=== PATIENT | female | born 1975 | race Caucasian/White ===

== ENCOUNTER 2020-11-22 09:28 | Outpatient (REF) | payer MEDICARE, SELFPAY ==
[2020-11-22 11:43] LABS: Hematocrit 54.5 % (37-47); Hemoglobin 18.5 g/dl (12.0-16.0); Mean Corpuscular HGB Conc 33.9 g/dl (31.0-35.0); Mean Corpuscular Hemoglobin 30.8 pg (27.0-33.0); Mean Corpuscular Volume 90.7 fL (80-98); Mean Platelet Volume 11.4 fL (9.4-12.3); Platelet Count 221 X10*3/uL (160-400); Red Blood Count 6.01 X10*6/uL (4.20-5.50); White Blood Count 9.1 X10*3/uL (4.8-10.8)
[2020-11-22 12:09] LABS: Alanine Aminotransferase 7 U/L (0-31); Albumin Level 5.2 g/dL (3.5-5.0); Alkaline Phosphatase 60 U/L (39-117); Anion Gap 18 (12-20); Aspartate Amino Transferase 14 U/L (5-31); Bilirubin Direct 0.6 mg/dL (0.0-0.5); Bilirubin Total 2.2 mg/dL (0.0-1.0); Blood Urea Nitrogen 29 mg/dL (9-16); Calcium 10.5 mg/dL (8.4-10.2); Carbon Dioxide 23 mmol/L (22-29); Chloride 103 mmol/L (96-108); Estimated Glomerular Filt Rate 52; Glucose Random 91 mg/dL (60-115); Sodium 140 mmol/L (135-145); Total Protein 7.9 g/dL (6.5-8.0)
[2020-11-22 12:22] LABS: HBc Num1 0.08 S/CO (0.00-0.79); HBsAGNum1 0.31 S/CO (0.00-0.99); HIV AB/AG Nonreactive (Nonreactive); HIV Num 1 0.05 S/CO (0.00-0.99); Hepatitis B Core Antibody Nonreactive (Nonreactive); Hepatitis B Surface Antigen Negative (Negative); ~HepC Num1 0.06 S/CO (0.00-0.79); ~Hepatitis C Antibody Nonreactive (Nonreactive)
[2020-11-22 12:26] LABS: Syphilis Screen Nonreactive (Nonreactive)
[2020-11-22 12:36] LABS: HBS Num1 1.15 mIU/mL (0-7.99); ~Hepatitis B Surface Antibody NONREACTIVE (Nonreactive)
[2020-11-24 07:41] LABS: Hepatitis A Antibody IgG Nonreactive (Nonreactive); ~Hepatitis A Antibody IgG 0.17 S/CO (0.00-0.99)
[2020-11-25 12:41] LABS: TS Negative Control Passed; TS Panel A 4; TS Panel B 6; TS Positive Control Passed; TSpotTB BORDERLINE (SeeBelow)
== END 2020-11-22 09:29 | disposition home or self-care (01) ==
LOC: HO.LAB 09:28
PROVIDERS: Visit Provider Internal Medicine
DX: F11.99 Opioid use, unspecified with unspecified opioid-induced disorder (principal); Z79.899 Other long term (current) drug therapy
CPT/HCPCS: 36415; 80048; 80076; 85027; 86481; 86704; 86706; 86708; 86780; 86803; 87340; 87389; 99202

== ENCOUNTER → 2020-11-29 11:20 | Outpatient (BNVA) | payer MEDICARE, SELFPAY | PROVIDERS: Visit Provider Internal Medicine | DX: F11.20 Opioid dependence, uncomplicated (principal) | CPT/HCPCS: 80305; 99211 ==

== ENCOUNTER → 2020-12-07 09:17 | Outpatient (BNVA) | payer MEDICARE, SELFPAY | PROVIDERS: Visit Provider Internal Medicine | DX: Z51.81 Encounter for therapeutic drug level monitoring (principal); Z79.899 Other long term (current) drug therapy | CPT/HCPCS: 80305; 99211 ==

== ENCOUNTER → 2020-12-14 10:17 | Outpatient (BNVA) | payer MEDICARE, SELFPAY | PROVIDERS: Visit Provider Internal Medicine | DX: Z51.81 Encounter for therapeutic drug level monitoring (principal); Z79.899 Other long term (current) drug therapy | CPT/HCPCS: 80305; 99211 ==

== ENCOUNTER → 2020-12-20 11:26 | Outpatient (BNVA) | payer MEDICARE, SELFPAY | DX: Z51.81 Encounter for therapeutic drug level monitoring (principal) | CPT/HCPCS: 80305; 99211 ==

== ENCOUNTER → 2021-01-03 10:56 | Outpatient (BNVA) | payer MEDICARE, SELFPAY | PROVIDERS: Visit Provider Internal Medicine | DX: F11.99 Opioid use, unspecified with unspecified opioid-induced disorder (principal) | CPT/HCPCS: 80305; 99211 ==

== ENCOUNTER → 2021-01-17 10:23 | Outpatient (BNVA) | payer MEDICARE, SELFPAY | PROVIDERS: Visit Provider Internal Medicine | DX: F11.20 Opioid dependence, uncomplicated (principal); Z51.81 Encounter for therapeutic drug level monitoring; Z79.899 Other long term (current) drug therapy | CPT/HCPCS: 96372; 99212; Q9992 ==

== ENCOUNTER → 2021-02-14 10:38 | Outpatient (BNVA) | payer MEDICARE, SELFPAY | PROVIDERS: Visit Provider Internal Medicine | DX: Z51.81 Encounter for therapeutic drug level monitoring (principal); F11.90 Opioid use, unspecified, uncomplicated | CPT/HCPCS: 80305; 81025; 96372; 99212; Q9992 ==

== ENCOUNTER → 2021-03-16 13:52 | Outpatient (BNVA) | payer MEDICARE, SELFPAY | PROVIDERS: Visit Provider Internal Medicine | DX: F11.20 Opioid dependence, uncomplicated (principal) | CPT/HCPCS: 80305; 96372; 99212 ==

== ENCOUNTER → 2021-04-18 10:43 | Outpatient (BNVA) | payer MEDICARE, SELFPAY | PROVIDERS: Visit Provider Internal Medicine | DX: F11.20 Opioid dependence, uncomplicated (principal); Z51.81 Encounter for therapeutic drug level monitoring; Z79.899 Other long term (current) drug therapy | CPT/HCPCS: 80305; 96372; 99212; Q9991 ==

== ENCOUNTER → 2021-05-18 11:24 | Outpatient (BNVA) | payer MEDICARE, SELFPAY | PROVIDERS: Visit Provider Internal Medicine | DX: F11.20 Opioid dependence, uncomplicated (principal); Z51.81 Encounter for therapeutic drug level monitoring; Z32.02 Encounter for pregnancy test, result negative; Z79.899 Other long term (current) drug therapy | CPT/HCPCS: 80305; 81025; 96372; 99212; Q9991 ==

== ENCOUNTER → 2021-06-14 10:26 | Outpatient (BNVA) | payer MEDICARE, SELFPAY | PROVIDERS: Visit Provider Internal Medicine | DX: F11.20 Opioid dependence, uncomplicated (principal); Z51.81 Encounter for therapeutic drug level monitoring; Z79.899 Other long term (current) drug therapy | CPT/HCPCS: 80305; 81025; 96372; 99212; Q9992 ==

== ENCOUNTER → 2021-07-13 10:37 | Outpatient (BNVA) | payer MEDICARE, SELFPAY | PROVIDERS: Visit Provider Internal Medicine | DX: F11.20 Opioid dependence, uncomplicated (principal); Z51.81 Encounter for therapeutic drug level monitoring; Z79.899 Other long term (current) drug therapy | CPT/HCPCS: 80305; 81025; 96372; 99212; Q9991 ==

== ENCOUNTER → 2021-08-10 10:46 | Outpatient (BNVA) | payer MEDICARE, SELFPAY | PROVIDERS: Visit Provider Internal Medicine | DX: F11.20 Opioid dependence, uncomplicated (principal) | CPT/HCPCS: 80305; 81025; 96372; 99212; Q9991 ==

== ENCOUNTER → 2021-09-07 10:31 | Outpatient (BNVA) | payer SELFPAY | PROVIDERS: Visit Provider Internal Medicine | DX: Z51.81 Encounter for therapeutic drug level monitoring (principal); F11.20 Opioid dependence, uncomplicated | CPT/HCPCS: 80305; 81025; 96372; 99212; Q9991 ==

== ENCOUNTER 2022-01-26 09:40 | Outpatient (REF) | payer MEDICAID, OTHER, SELFPAY ==
[2022-01-26 10:38] LABS: Alanine Aminotransferase 26 U/L (0-31); Albumin Level 4.4 g/dL (3.5-5.0); Alkaline Phosphatase 66 U/L (39-117); Anion Gap 12 (12-20); Aspartate Amino Transferase 22 U/L (5-31); Bilirubin Total 0.6 mg/dL (0.0-1.0); Blood Urea Nitrogen 14 mg/dL (9-16); Calcium 8.9 mg/dL (8.4-10.2); Carbon Dioxide 26 mmol/L (22-29); Chloride 106 mmol/L (96-108); Estimated Glomerular Filt Rate > 60; Glucose Random 73 mg/dL (60-115); Potassium 4.1 mmol/L (3.3-5.1); Sodium 140 mmol/L (135-145); Total Protein 6.7 g/dL (6.5-8.0)
== END 2022-01-26 09:41 | disposition home or self-care (01) ==
LOC: HO.LAB 09:40
PROVIDERS: Visit Provider Nurse Practitioner Psychiatric/Mental Health
DX: F11.20 Opioid dependence, uncomplicated (principal); Z79.899 Other long term (current) drug therapy
CPT/HCPCS: 36415; 80053; 80305; 99212

== ENCOUNTER → 2022-04-07 13:27 | Outpatient (BNVA) | payer MEDICAID, OTHER, SELFPAY | PROVIDERS: PCP Nurse Practitioner Family; Visit Provider Nurse Practitioner Psychiatric/Mental Health | DX: Z51.81 Encounter for therapeutic drug level monitoring (principal); F11.20 Opioid dependence, uncomplicated | CPT/HCPCS: 80305; 99212 ==

== ENCOUNTER → 2022-04-21 13:00 | Outpatient (BNVA) | payer MEDICAID, OTHER, SELFPAY | PROVIDERS: PCP Nurse Practitioner Family; Visit Provider Nurse Practitioner Psychiatric/Mental Health | DX: Z51.81 Encounter for therapeutic drug level monitoring (principal); F11.20 Opioid dependence, uncomplicated | CPT/HCPCS: 80305; 99212 ==

== ENCOUNTER → 2022-06-07 10:56 | Outpatient (BNVA) | payer MEDICAID, SELFPAY | PROVIDERS: PCP Nurse Practitioner Family; Visit Provider Nurse Practitioner Psychiatric/Mental Health | DX: F11.20 Opioid dependence, uncomplicated (principal) | CPT/HCPCS: 99212 ==

== ENCOUNTER → 2022-08-08 10:31 | Outpatient (BNVA) | payer MEDICAID, SELFPAY | PROVIDERS: PCP Nurse Practitioner Family; Visit Provider Nurse Practitioner Psychiatric/Mental Health | DX: F11.20 Opioid dependence, uncomplicated (principal) | CPT/HCPCS: 99212 ==

== ENCOUNTER → 2022-10-10 15:42 | Outpatient (BNVA) | payer MEDICAID, SELFPAY | PROVIDERS: PCP Nurse Practitioner Family; Visit Provider Nurse Practitioner Psychiatric/Mental Health | DX: F11.20 Opioid dependence, uncomplicated (principal); Z79.899 Other long term (current) drug therapy; Z51.81 Encounter for therapeutic drug level monitoring | CPT/HCPCS: 99212 ==

== ENCOUNTER 2023-01-26 13:49 | Outpatient (AMB) | payer MEDICAID, SELFPAY ==
--- NOTE | 2023-01-26 13:55 | A.OFFVIS_ITS ---
Intake Vital Signs 01/26/23 14:06 BP 124/82 Blood Pressure Location Lt radial Position Sitting Pulse 84 Pulse Source Pulse Oximeter Pulse Oximetry (%) 99 Oxygen Delivery Method Room Air Intake Visit Reasons: MAT Visit Intake Note: the patient presents for a mat visit Code Enforcement Supervisor Required: No Allergies Iodinated Contrast Media [CONTRAST, IV] Allergy (Severe, Verified 01/26/23 13:56) ANAPHALAXIS Penicillins [PENICILLINS] Allergy (Intermediate, Verified 01/26/23 13:56) HIVES mushroom Allergy (Mild, Verified 01/26/23 13:56) Rash divalproex sodium [From DEPAKOTE] Allergy (Unknown, Verified 01/26/23 13:56) SWELLING Do you need a note to return to daycare/school/sports/work: No HPI MAT Visit HPI Details Patient presents for treatment follow up taking suboxone every other day 1/2 -one film Was taking medications via cerebral --stopped 2 months ago due to cost Celexa 40mg daily Buspar 7.5 mg BID Lamictal 100mg BID Concerned she will not be able to stop suboxone due to withdrawal sx that present after a day or two of not having it--mainly the restless legs Discussed a p.r.n. medication to address this and see if it is effective. Patient agreeable. [facility] Medical History (Updated 01/26/23 @ 17:55 by Britt Rodríguez CNP) Opioid use disorder Surgical History History of appendectomy History of bunionectomy History of cholecystectomy Previous back surgery Review of Systems Const Reports as per HPI Physical Exam Vital Signs: Last Vital Signs Pulse 84 01/26/23 14:06 BP 124/82 01/26/23 14:06 Pulse Ox 99 01/26/23 14:06 Oxygen Delivery Method Room Air 01/26/23 14:06 Const General: cooperative, healthy appearing and no acute distress Nutritional Appearance: average body habitus Orientation/consciousness: patient oriented x3 Limitations: no limitations Neuro General: patient oriented x3 Psych Appearance: grossly normal Mental Status: mental status grossly normal Speech and movement: Normal speech and movement present Affect: Anxious affect present Attitude: cooperative Thought process: Normal thought process present Thought content: Normal thought content present Insight: Good insight present (Psych) Judgement: Good judgement present (Psych) Results AMB 14 Panel Urine Drug Screen Urine Marijuana (THC) Negative Last Edit by Faye Gong CMA on 01/26/23 15:11 Urine Cocaine Negative Last Edit by Faye Gong CMA on 01/26/23 15:11 Urine Morphine Negative Last Edit by Faye Gong CMA on 01/26/23 15:11 Urine Methamphetamine Negative Last Edit by Faye Gong CMA on 01/26/23 15:11 Urine Amphetamine Negative Last Edit by Faye Gong CMA on 01/26/23 15:1 1 Urine Benzodiazepine Negative Last Edit by Faye Gong CMA on 01/26/23 15:11 Urine Barbiturates Negative Last Edit by Faye Gong CMA on 01/26/23 15: 11 Urine Methadone Negative Last Edit by Faye Gong CMA on 01/26/23 15:11 Urine Buprenorphine Positive Last Edit by Faye Gong CMA on 01/26/23 15 :11 Urine Tricyclic Antidepressant Positive Last Edit by Faye Gong CMA on 01/26/23 15:11 Urine MDMA Negative Last Edit by Faye Gong CMA on 01/26/23 15:11 Urine Oxycodone Negative Last Edit by Faye Gong CMA on 01/26/23 15:11 Urine Phencyclidine Negative Last Edit by Faye Gong CMA on 01/26/23 15 :11 Urine Propoxyphene Negative Last Edit by Faye Gong CMA on 01/26/23 15: 11 Results Reviewed Results Reviewed: Laboratory Last Values POC Urine Buprenorphine Positive 01/26/23 13:57 POC Urine Morphine Negative 01/26/23 13:57 POC Urine Oxycodone Negative 01/26/23 13:57 POC Urine Methadone Negative 01/26/23 13:57 POC Urine Propoxyphene Negative 01/26/23 13:57 POC Urine Barbiturates Negative 01/26/23 13:57 POC U Tricyclic Antidpr Positive 01/26/23 13:57 POC Urine PCP Negative 01/26/23 13:57 POC Ur Amphetamines Negative 01/26/23 13:57 POC Ur Methamphetamine Negative 01/26/23 13:57 POC Urine MDMA Negative 01/26/23 13:57 POC Ur Benzodiazepine Negative 01/26/23 13:57 POC Urine Cocaine Negative 01/26/23 13:57 POC Ur Marijuana (THC) Negative 01/26/23 13:57 Assessment & Plan Assessment & Plan (1) Opioid use disorder: Code(s): F11.99 - Opioid use, unspecified with unspecified opioid-induced disorder Plan: * Patient to continue taking Suboxone S she currently is * Celexa and BuSpar refilled * The tizanidine p.r.n. ordered for restless legs * Follow-up 3 weeks via telephone Orders: Orders AMB 14 Panel Urine Drug Screen Today Z51.81 - Encounter for therapeutic drug level monitoring Medications: New citalopram (Celexa) take one tab daily for one week then increase to 2 tabs daily 10 mg PO DAILY 45 tabs 0RF buspirone 10 mg PO BID 60 tabs 0RF tizanidine 4 mg PO BEDTIME PRN 14 tabs 0RF muscle spasticity Refilled buprenorphine-naloxone 2-0.5 mg (Suboxone) 1 film sublingual DAILY 28 ea 0RF 28 days Coding Level of Care Code Est Pt Level 4 (15660) Diagnoses Opioid use disorder F11.99
[2023-01-26 14:06] VITALS: BP 124/82; PULSE 84; O2SAT 99
== END 2023-01-26 14:39 | disposition home or self-care (01) ==
LOC: HO.HCC 13:49
PROVIDERS: PCP Nurse Practitioner Family; Visit Provider Nurse Practitioner Psychiatric/Mental Health
DX: F11.99 Opioid use, unspecified with unspecified opioid-induced disorder (principal); Z51.81 Encounter for therapeutic drug level monitoring
CPT/HCPCS: 99214

== ENCOUNTER → 2023-01-26 13:49 | Outpatient (BNVA) | payer MEDICAID, SELFPAY | PROVIDERS: PCP Nurse Practitioner Family; Visit Provider Nurse Practitioner Psychiatric/Mental Health | DX: F11.20 Opioid dependence, uncomplicated (principal) | CPT/HCPCS: 80305; 99212; 99214 ==

== ENCOUNTER 2023-02-23 08:58 | Outpatient (AMB) | payer MEDICAID, SELFPAY ==
--- NOTE | 2023-02-23 09:02 | A.OFFVIS_ITS ---
Intake Intake Visit Reasons: MAT Visit Allergies Iodinated Contrast Media [CONTRAST, IV] Allergy (Severe, Verified 01/26/23 13:56) ANAPHALAXIS Penicillins [PENICILLINS] Allergy (Intermediate, Verified 01/26/23 13:56) HIVES mushroom Allergy (Mild, Verified 01/26/23 13:56) Rash divalproex sodium [From DEPAKOTE] Allergy (Unknown, Verified 01/26/23 13:56) SWELLING HPI MAT Visit HPI Details Patient presents for visit via telehealth Has started to taper dose--but has been taking PRN instead of daily. Has been taking 1/2 film PRN and having significant withdrawal sx in the evening, mainly restless legs. Tizanidine has been somewhat helpful. Discussed taking 1/2 film daily for a few weeks, then decreasing to 1/4 film daily for several weeks. Tolerating celexa and buspirone--would like to increase dose to previous therapeutic dose of 40mg Celexa [facility] Medical History (Updated 01/26/23 @ 17:55 by Britt Rodríguez CNP) Opioid use disorder Surgical History History of cholecystectomy History of appendectomy History of bunionectomy Previous back surgery Review of Systems Const Reports as per HPI and Reports difficulty sleeping Assessment & Plan Assessment & Plan (1) Opioid use disorder: Code(s): F11.99 - Opioid use, unspecified with unspecified opioid-induced disorder Plan: * continue suboxone at 1mg QD * refilled tizanidine * increased celexa dose to 40mg (previous therapeutic dose) * refilled buspirone * follow up 03/23 telehealth Medications: New citalopram (Celexa) 40 mg PO DAILY 30 tabs 3RF buspirone 10 mg PO TID 90 tabs 3RF Refilled tizanidine 4 mg PO BEDTIME PRN 14 tabs 0RF muscle spasticity Discontinued citalopram (Celexa) take one tab daily for one week then increase to 2 tabs daily Discontinued Reason: Doctor's Order 10 mg PO DAILY 45 tabs 0RF buspirone Discontinued Reason: Doctor's Order 10 mg PO BID 60 tabs 0RF Telehealth Telehealth Location of provider rendering services: practice address Location of patient: address on file Patient Identification confirmed using: Name, : Yes Telehealth method: voice only Patient verbally consented to treatment: Yes Patient verbally consented to billing insurance company: Yes Coding Level of Care Code Tele Est Pt Level 4 (82629) Diagnoses Opioid use disorder F11.99 Time Spent (min) 25 Comment 20mins with patient, remainder on chart review and documentation
== END 2023-02-23 10:59 | disposition home or self-care (01) ==
LOC: HO.HCC 08:58
PROVIDERS: PCP Nurse Practitioner Family; Visit Provider Nurse Practitioner Psychiatric/Mental Health
DX: F11.99 Opioid use, unspecified with unspecified opioid-induced disorder (principal)
CPT/HCPCS: 99214

== ENCOUNTER → 2023-02-23 08:58 | Outpatient (BNVA) | payer MEDICAID, SELFPAY | PROVIDERS: PCP Nurse Practitioner Family; Visit Provider Nurse Practitioner Psychiatric/Mental Health | DX: Z51.81 Encounter for therapeutic drug level monitoring (principal) ==

== ENCOUNTER 2023-03-23 09:00 | Outpatient (AMB) | payer MEDICAID, SELFPAY ==
--- NOTE | 2023-03-23 09:02 | MHC.AM.SUB ---
Intake Intake Visit Reasons: mat visit Allergies Iodinated Contrast Media [CONTRAST, IV] Allergy (Severe, Verified 01/26/23 13:56) ANAPHALAXIS Penicillins [PENICILLINS] Allergy (Intermediate, Verified 01/26/23 13:56) HIVES mushroom Allergy (Mild, Verified 01/26/23 13:56) Rash divalproex sodium [From DEPAKOTE] Allergy (Unknown, Verified 01/26/23 13:56) SWELLING HPI mat visit HPI Details Patient presents for follow up via telehealth Has been taking 1/2 of 2mg film daily. Reports that since she has started taking Suboxone daily her restless legs have much improved She has been at this dose for the last month 1/4 film daily [facility] Medical History (Updated 01/26/23 @ 17:55 by Britt Rodríguez CNP) Opioid use disorder Surgical History History of cholecystectomy History of appendectomy History of bunionectomy Previous back surgery Review of Systems Const Reports as per HPI and Reports no additional complaints Assessment & Plan Assessment & Plan (1) Opioid use disorder: Code(s): F11.99 - Opioid use, unspecified with unspecified opioid-induced disorder Plan: decrease dose by 1/4 film follow up 6 weeks refilled medications Medications: Refilled buprenorphine-naloxone 2-0.5 mg (Suboxone) 1 film sublingual DAILY 28 days 28 ea 0RF tizanidine 4 mg PO BEDTIME PRN 30 tabs 0RF muscle spasticity Telehealth Telehealth Location of provider rendering services: practice address Location of patient: address on file Patient Identification confirmed using: Name, : Yes Telehealth method: voice only Patient verbally consented to treatment: Yes Patient verbally consented to billing insurance company: Yes Coding Level of Care Code Tele Est Pt Level 3 (10458) Diagnoses Opioid use disorder F11.99 Time Spent (min) 25 Comment 15 mins with patient reminder on chart review and documentation
== END 2023-03-23 09:22 | disposition home or self-care (01) ==
PROVIDERS: PCP Nurse Practitioner Family; Visit Provider Nurse Practitioner Psychiatric/Mental Health
DX: F11.99 Opioid use, unspecified with unspecified opioid-induced disorder (principal)
CPT/HCPCS: 99213

== ENCOUNTER → 2023-03-23 09:00 | Outpatient (BNVA) | payer MEDICAID, SELFPAY | PROVIDERS: PCP Nurse Practitioner Family; Visit Provider Nurse Practitioner Psychiatric/Mental Health ==

== ENCOUNTER 2023-05-04 08:42 | Outpatient (AMB) | payer MEDICAID, SELFPAY ==
--- NOTE | 2023-05-04 09:03 | A.OFFVIS_ITS ---
Intake Intake Visit Reasons: mat visit Allergies Iodinated Contrast Media [CONTRAST, IV] Allergy (Severe, Verified 01/26/23 13:56) ANAPHALAXIS Penicillins [PENICILLINS] Allergy (Intermediate, Verified 01/26/23 13:56) HIVES mushroom Allergy (Mild, Verified 01/26/23 13:56) Rash divalproex sodium [From DEPAKOTE] Allergy (Unknown, Verified 01/26/23 13:56) SWELLING HPI mat visit HPI Details Patient presents for follow up via telehealth Currently prescribed Suboxone 2mg QD-taking 1mg QD Doing well overall. No questions or concerns at this time Working [employer] Medical History (Updated 01/26/23 @ 17:55 by Britt Rodríguez CNP) Opioid use disorder Surgical History History of cholecystectomy History of appendectomy History of bunionectomy Previous back surgery Review of Systems Const Reports as per HPI and Reports no additional complaints Assessment & Plan Assessment & Plan (1) Opioid use disorder: Code(s): F11.99 - Opioid use, unspecified with unspecified opioid-induced disorder Plan: * decrease dose by 1/4 film if tolerated * follow up 6 weeks * refilled medications Medications: Refilled buprenorphine-naloxone 2-0.5 mg (Suboxone) 1 film sublingual DAILY 28 ea 0RF 28 days tizanidine 4 mg PO BEDTIME PRN 30 tabs 0RF muscle spasticity Telehealth Telehealth Location of provider rendering services: practice address Location of patient: other Patient Identification confirmed using: Name, : Yes Telehealth method: voice only Patient verbally consented to treatment: Yes Patient verbally consented to billing insurance company: Yes Coding Level of Care Code Tele Est Pt Level 3 (91851) Diagnoses Opioid use disorder F11.99 Time Spent (min) 25
== END 2023-05-04 09:37 | disposition home or self-care (01) ==
PROVIDERS: PCP Nurse Practitioner Family; Visit Provider Nurse Practitioner Psychiatric/Mental Health
DX: F11.99 Opioid use, unspecified with unspecified opioid-induced disorder (principal)
CPT/HCPCS: 99213

== ENCOUNTER → 2023-05-04 08:42 | Outpatient (BNVA) | payer MEDICAID, SELFPAY | PROVIDERS: PCP Nurse Practitioner Family; Visit Provider Nurse Practitioner Psychiatric/Mental Health ==

== ENCOUNTER 2023-06-18 09:04 | Outpatient (AMB) | payer MEDICAID, SELFPAY ==
--- NOTE | 2023-06-18 09:05 | A.OFFVISCC_ITS ---
Intake Intake Visit Reasons: MAT Visit Allergies Iodinated Contrast Media [CONTRAST, IV] Allergy (Severe, Verified 01/26/23 13:56) ANAPHALAXIS Penicillins [PENICILLINS] Allergy (Intermediate, Verified 01/26/23 13:56) HIVES mushroom Allergy (Mild, Verified 01/26/23 13:56) Rash divalproex sodium [From DEPAKOTE] Allergy (Unknown, Verified 01/26/23 13:56) SWELLING HPI MAT Visit HPI Details Patient presents for follow up via telehealth Reporting that she has been feeling really down , poor sleep--frequent waking, decreased interest in doing things, poor appetite. Sx present for about a month. Denies feeling like this in the past. Wondering if Lamotrigine would be helpful as she was previously on 100mg. No issues with Suboxone, continues to take it every evening. [facility] Medical History (Updated 06/21/23 @ 09:38 by Britt Rodríguez CNP) Opioid use disorder Surgical History History of cholecystectomy History of appendectomy History of bunionectomy Previous back surgery Review of Systems Const Reports as per HPI Assessment & Plan Assessment & Plan (1) Opioid use disorder: Code(s): F11.99 - Opioid use, unspecified with unspecified opioid-induced disorder Plan: * continue suboxone at current dose (2) MDD (major depressive disorder), recurrent episode, moderate: Code(s): F33.1 - Major depressive disorder, recurrent, moderate Plan: * continue celexa * started lamictal 25mg QD--while patient is familiar with medication becasue she was previously prescribed it, reinforced dosing and possible side effects to watch for. Medications: New lamotrigine 25 mg PO DAILY 14 days 14 tabs 0RF Telehealth Telehealth Location of provider rendering services: practice address Location of patient: address on file Patient Identification confirmed using: Name, : Yes Telehealth method: voice only Patient verbally consented to treatment: Yes Patient verbally consented to billing insurance company: Yes Coding Level of Care Code Tele Est Pt Level 4 (10879) Diagnoses Opioid use disorder F11.99 MDD (major depressive disorder), recurrent episode, moderate F33.1 Time Spent (min) 35 Comment 25 with patient remainder on chart review and documentation
== END 2023-06-18 09:19 | disposition home or self-care (01) ==
PROVIDERS: PCP Nurse Practitioner Family; Visit Provider Nurse Practitioner Psychiatric/Mental Health
DX: F11.99 Opioid use, unspecified with unspecified opioid-induced disorder (principal); F33.1 Major depressive disorder, recurrent, moderate
CPT/HCPCS: 99214

== ENCOUNTER → 2023-06-18 09:04 | Outpatient (BNVA) | payer MEDICAID, SELFPAY | PROVIDERS: PCP Nurse Practitioner Family; Visit Provider Nurse Practitioner Psychiatric/Mental Health ==

== ENCOUNTER 2023-07-20 13:22 | Outpatient (AMB) | payer OTHER, SELFPAY ==
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
[2023-07-20 13:41] VITALS: BP 138/84; PULSE 84; O2SAT 97; BMI 27.5
== END 2023-07-20 14:17 | disposition home or self-care (01) ==
PROVIDERS: PCP Nurse Practitioner Family; Visit Provider Nurse Practitioner Psychiatric/Mental Health
DX: F11.99 Opioid use, unspecified with unspecified opioid-induced disorder (principal); F33.1 Major depressive disorder, recurrent, moderate
CPT/HCPCS: 99214

== ENCOUNTER → 2023-07-20 13:22 | Outpatient (BNVA) | payer OTHER, SELFPAY | PROVIDERS: PCP Nurse Practitioner Family; Visit Provider Nurse Practitioner Psychiatric/Mental Health | DX: F11.20 Opioid dependence, uncomplicated (principal); F33.1 Major depressive disorder, recurrent, moderate; Z79.899 Other long term (current) drug therapy | CPT/HCPCS: 80305 ==

== ENCOUNTER 2023-08-14 09:02 | Outpatient (AMB) | payer OTHER, SELFPAY ==
--- NOTE | 2023-08-14 09:04 | MHC.AM.SUB ---
Intake Intake Visit Reasons: MAT Visit Allergies Iodinated Contrast Media [CONTRAST, IV] Allergy (Severe, Verified 01/26/23 13:56) ANAPHALAXIS Penicillins [PENICILLINS] Allergy (Intermediate, Verified 01/26/23 13:56) HIVES mushroom Allergy (Mild, Verified 01/26/23 13:56) Rash divalproex sodium [From DEPAKOTE] Allergy (Unknown, Verified 01/26/23 13:56) SWELLING HPI MAT Visit HPI Details Patient presents for follow up via telehealth Tolerating increase in Lamictal Reporting a positive month Doing well with Suboxone dose Denies any side effects [facility] Medical History (Updated 08/14/23 @ 09:11 by Britt Rodríguez CNP) Opioid use disorder Surgical History History of cholecystectomy History of appendectomy History of bunionectomy Previous back surgery Review of Systems Const Reports as per HPI and Reports no additional complaints Assessment & Plan Assessment & Plan (1) Opioid use disorder, moderate, in sustained remission: Code(s): F11.21 - Opioid dependence, in remission Plan: continue with current dose (2) MDD (major depressive disorder), recurrent episode, moderate: Code(s): F33.1 - Major depressive disorder, recurrent, moderate Plan: continue lamictal at current dose follow up 8 weeks Medications: Refilled lamotrigine 50 mg (2 x 25 mg) PO DAILY 60 tabs 1RF 30 days tizanidine 4 mg PO BEDTIME PRN 30 tabs 1RF muscle spasticity buprenorphine-naloxone 2-0.5 mg (Suboxone) 1 film sublingual DAILY 28 ea 1RF 28 days Telehealth Telehealth Location of provider rendering services: practice address Location of patient: address on file Patient Identification confirmed using: Name, : Yes Telehealth method: voice only Patient verbally consented to treatment: Yes Patient verbally consented to billing insurance company: Yes Coding Level of Care Code Tele Est Pt Level 4 (53286) Diagnoses Opioid use disorder, moderate, in sustained remission F11.21 MDD (major depressive disorder), recurrent episode, moderate F33.1
== END 2023-08-14 09:50 | disposition home or self-care (01) ==
PROVIDERS: PCP Nurse Practitioner Family; Visit Provider Nurse Practitioner Psychiatric/Mental Health
DX: F11.21 Opioid dependence, in remission (principal); F33.1 Major depressive disorder, recurrent, moderate
CPT/HCPCS: 99214

== ENCOUNTER → 2023-08-14 09:02 | Outpatient (BNVA) | payer OTHER, SELFPAY | PROVIDERS: PCP Nurse Practitioner Family; Visit Provider Nurse Practitioner Psychiatric/Mental Health | DX: Z51.81 Encounter for therapeutic drug level monitoring (principal) ==

== ENCOUNTER 2024-01-23 14:16 | Outpatient (AMB) | payer OTHER, SELFPAY ==
--- NOTE | 2024-01-23 14:40 | A.OFFVISCC_ITS ---
Intake Visit Reasons: MAT office Allergies Iodinated Contrast Media [CONTRAST, IV] Allergy (Severe, Verified 01/26/23 13:56) ANAPHALAXIS Penicillins [PENICILLINS] Allergy (Intermediate, Verified 01/26/23 13:56) HIVES mushroom Allergy (Mild, Verified 01/26/23 13:56) Rash divalproex sodium [From DEPAKOTE] Allergy (Unknown, Verified 01/26/23 13:56) SWELLING HPI HPI MAT office: Details: Patient presents for follow up Currently prescribed Suboxone 2mg daily Feels like she has been taking suboxone more consistently recently discussed strategies for continuing to reduce dose new dentures mood stable with current regimen PFSH Medical History (Updated 08/14/23 @ 09:11 by Britt Rodríguez CNP) Opioid use disorder Surgical History History of cholecystectomy History of appendectomy History of bunionectomy Previous back surgery Review of Systems Const Reports as per HPI Physical Exam Const General: cooperative, healthy appearing and no acute distress Nutritional Appearance: average body habitus Orientation/consciousness: patient oriented x3 Limitations: no limitations Neuro General: patient oriented x3 Psych Appearance: grossly normal Mental Status: mental status grossly normal Speech and movement: Normal speech and movement present Affect: Anxious affect present Attitude: cooperative Thought process: Normal thought process present Thought content: Normal thought content present Insight: Good insight present (Psych) Judgement: Good judgement present (Psych) Assessment & Plan Assessment & Plan (1) Opioid use disorder, moderate, in sustained remission: Code(s): F11.21 - Opioid dependence, in remission Category: Medical Plan: * continue with current dose (2) MDD (major depressive disorder), recurrent episode, moderate: Code(s): F33.1 - Major depressive disorder, recurrent, moderate Category: Medical Plan: * continue lamictal at current dose * follow up 8 weeks telehealth Medications: Refilled tizanidine 4 mg PO BEDTIME PRN 30 tabs 3RF muscle spasticity lamotrigine 50 mg (2 x 25 mg) PO DAILY 60 tabs 3RF 30 days citalopram (Celexa) 40 mg PO DAILY 90 tabs 3RF
== END 2024-01-23 15:52 | disposition home or self-care (01) ==
PROVIDERS: PCP Nurse Practitioner Family; Visit Provider Nurse Practitioner Psychiatric/Mental Health
DX: F11.21 Opioid dependence, in remission (principal); F33.1 Major depressive disorder, recurrent, moderate
CPT/HCPCS: 99214

== ENCOUNTER → 2024-01-23 14:16 | Outpatient (BNVA) | payer OTHER, SELFPAY | PROVIDERS: PCP Nurse Practitioner Family; Visit Provider Nurse Practitioner Psychiatric/Mental Health ==

== ENCOUNTER 2024-02-21 08:44 | Outpatient (AMB) | payer OTHER, SELFPAY ==
--- NOTE | 2024-02-21 08:43 | A.OFFVISCC_ITS ---
Intake Visit Reasons: MAT Tele Allergies Iodinated Contrast Media [CONTRAST, IV] Allergy (Severe, Verified 01/26/23 13:56) ANAPHALAXIS Penicillins [PENICILLINS] Allergy (Intermediate, Verified 01/26/23 13:56) HIVES mushroom Allergy (Mild, Verified 01/26/23 13:56) Rash divalproex sodium [From DEPAKOTE] Allergy (Unknown, Verified 01/26/23 13:56) SWELLING Medication List - Last Reconciled 02/21/24 by Britt Rodríguez CNP buprenorphine-naloxone 2-0.5 mg (Suboxone) 1 film sublingual DAILY 28 days buspirone 15 mg PO TID citalopram (Celexa) 40 mg PO DAILY lamotrigine 50 mg (2 x 25 mg) PO DAILY 30 days naloxone 4 mg/actuation (Narcan) 4 mg intranasal Q2M PRN tizanidine 4 mg PO BEDTIME PRN HPI HPI MAT Tele: Details: Patient presents for follow up via telehealth Reporting that she has been taking one film consistently feels it may be related to anxiety discussed brixadi low dose--open to trialing [facility] Medical History (Updated 08/14/23 @ 09:11 by Britt Rodríguez CNP) Opioid use disorder Surgical History History of cholecystectomy History of appendectomy History of bunionectomy Previous back surgery Review of Systems Const Reports as per HPI Telehealth Telehealth Telehealth Platform: Telephone Location of provider rendering services: practice address Location of patient: address on file Patient Identification confirmed using: Name, : Yes Telehealth method: voice only Patient verbally consented to treatment: Yes Patient verbally consented to billing insurance company: Yes Minutes spent on Phone/Video with Pt.: 20 Assessment & Plan Assessment & Plan (1) Opioid use disorder, moderate, in sustained remission: Code(s): F11.21 - Opioid dependence, in remission Category: Medical Plan: * continue suboxone at current dose * will order Brixadi (2) MDD (major depressive disorder), recurrent episode, moderate: Code(s): F33.1 - Major depressive disorder, recurrent, moderate Category: Medical Plan: * increase buspar to 15mg TID * follow up 6 weeks Medications: New buspirone 15 mg PO TID 90 tabs 0RF Discontinued buspirone Discontinued Reason: Doctor's Order 10 mg PO TID 90 tabs 1RF
== END 2024-02-21 09:22 | disposition home or self-care (01) ==
PROVIDERS: PCP Nurse Practitioner Family; Visit Provider Nurse Practitioner Psychiatric/Mental Health
DX: F11.21 Opioid dependence, in remission (principal); F33.1 Major depressive disorder, recurrent, moderate
CPT/HCPCS: 99214

== ENCOUNTER → 2024-02-21 08:44 | Outpatient (BNVA) | payer OTHER, SELFPAY | PROVIDERS: PCP Nurse Practitioner Family; Visit Provider Nurse Practitioner Psychiatric/Mental Health ==

== ENCOUNTER 2024-07-18 10:33 | Outpatient (AMB) | payer OTHER, SELFPAY ==
--- NOTE | 2024-07-18 10:49 | A.OFFVISCC_ITS ---
Intake Visit Reasons: MAT Office Allergies Iodinated Contrast Media [CONTRAST, IV] Allergy (Severe, Verified 01/26/23 13:56) ANAPHALAXIS Penicillins [PENICILLINS] Allergy (Intermediate, Verified 01/26/23 13:56) HIVES mushroom Allergy (Mild, Verified 01/26/23 13:56) Rash divalproex sodium [From DEPAKOTE] Allergy (Unknown, Verified 01/26/23 13:56) SWELLING HPI HPI MAT Office: Details: Patient presents for follow up Currently prescribed Suboxone 2mg QD Doing well with Suboxone Reporting increase in anxiety Had to leave work due to what felt like a panic attack Discussed seeing PCP to r/o anything underlying thyroid, anemia, etc patient agreeable Review of Systems Const Reports as per HPI and Reports no additional complaints Physical Exam Const General: cooperative, healthy appearing and no acute distress Nutritional Appearance: average body habitus Orientation/consciousness: patient oriented x3 Limitations: no limitations Neuro General: patient oriented x3 Psych Appearance: grossly normal Mental Status: mental status grossly normal Speech and movement: Normal speech and movement present Affect: Anxious affect present Attitude: cooperative Thought process: Normal thought process present Thought content: Normal thought content present Insight: Good insight present (Psych) Judgement: Good judgement present (Psych) [facility] Medical History (Updated 08/14/23 @ 09:11 by Britt Rodríguez CNP) Opioid use disorder Surgical History History of cholecystectomy History of appendectomy History of bunionectomy Previous back surgery Assessment & Plan Assessment & Plan (1) Opioid use disorder, moderate, in sustained remission: Code(s): F11.21 - Opioid dependence, in remission Category: Medical Plan: * continue suboxone at current dose (2) MDD (major depressive disorder), recurrent episode, moderate: Code(s): F33.1 - Major depressive disorder, recurrent, moderate Category: Medical Plan: * continue current medications * follow up 6 weeks
== END 2024-07-18 11:05 | disposition home or self-care (01) ==
LOC: HO.HCC 10:33
PROVIDERS: PCP Nurse Practitioner Family; Visit Provider Nurse Practitioner Psychiatric/Mental Health
DX: F11.21 Opioid dependence, in remission (principal); F33.1 Major depressive disorder, recurrent, moderate
CPT/HCPCS: 99213

== ENCOUNTER → 2024-07-18 10:33 | Outpatient (BNVA) | payer OTHER, SELFPAY | PROVIDERS: PCP Nurse Practitioner Family; Visit Provider Nurse Practitioner Psychiatric/Mental Health ==

== ENCOUNTER → 2024-09-10 16:08 | Outpatient (BNVA) | payer OTHER, SELFPAY | PROVIDERS: PCP Nurse Practitioner Family; Visit Provider Internal Medicine ==

== ENCOUNTER 2024-12-22 11:12 | Outpatient (AMB) | payer OTHER, SELFPAY ==
[2024-12-22 11:18] VITALS: PULSE 88; O2SAT 99; BMI 27.5
--- NOTE | 2024-12-22 11:18 | MHC.OFFVIS ---
Vital Signs 12/22/24 11:18 Height 5 ft 5 in Weight 165 lb BMI 27.5 Pulse 88 Pulse Source Pulse Oximeter Pulse Oximetry (%) 99 Oxygen Delivery Method Room Air Intake Visit Reasons: mat Allergies Iodinated Contrast Media (CONTRAST, IV) Allergy (Severe, Verified 12/22/24 11:19) ANAPHALAXIS Penicillins (PENICILLINS) Allergy (Intermediate, Verified 12/22/24 11:19) HIVES mushroom Allergy (Mild, Verified 12/22/24 11:19) Rash divalproex sodium (From DEPAKOTE) Allergy (Unknown, Verified 12/22/24 11:19) SWELLING HPI Comments Details: A 49-year-old female presents with a history of OUD and continues to feel stable on buprenorphine/naloxone 2-0.5 mg daily, which the patient has been compliant with for four years. The patient mentions a milestone of stability but has considered transitioning to injectable buprenorphine which insurance complications had made inaccessible. There is also a noted prescription for buspirone, taken three times and lamotrigine daily for which patient is asking for refills until able to follow up with PCP. The patient, historically under the care of Britt, established a need for continuity as her previous clinician shifted focus to inpatient care. The patient reports nicotine use via vaping amid abstinence from traditional cigarette smoking or other opioids. Alcohol use is also described, characterized as twisted tea consumption twice a week, with the patient expressly denying substantial alcohol use. [facility] Medical History Opioid use disorder Surgical History History of cholecystectomy History of appendectomy History of bunionectomy Previous back surgery Review of Systems Const All systems reviewed & are unremarkable except as noted in HPI and below Physical Exam Vital Signs: Last Vital Signs Pulse 88 12/22/24 11:18 Pulse Ox 99 12/22/24 11:18 Oxygen Delivery Method Room Air 12/22/24 11:18 BMI result Body Mass Index 27.5 Const General: cooperative Psych Appearance: well kempt Mental Status: mental status grossly normal Speech and movement: Normal speech and movement present Affect: Animated affect present Attitude: cooperative Thought process: Normal thought process present Thought content: Normal thought content present Insight: Good insight present (Psych) Judgement: Good judgement present (Psych) Assessment & Plan Assessment & Plan (1) Opioid use disorder, moderate, in sustained remission: Code(s): F11.21 - Opioid dependence, in remission Category: Medical (2) MDD (major depressive disorder), recurrent episode, moderate: Code(s): F33.1 - Major depressive disorder, recurrent, moderate Category: Medical (3) Generalized anxiety disorder: Code(s): F41.1 - Generalized anxiety disorder Category: Medical Plan The plan of care is continue with buprenorphine-naloxone 2-0.5 mg, daily. Refills on buspirone 15 mg, TID and lamotrigine 25 mg, two tablets daily pending following up with PCP or establishing mental health service. Medications: Refilled lamotrigine 50 mg (2 x 25 mg) PO DAILY 60 tabs 1RF 30 days buprenorphine-naloxone 2-0.5 mg (Suboxone) 1 film sublingual DAILY 30 ea 1RF buspirone 15 mg PO TID 90 tabs 1RF Patient Instructions: - Continue buprenorphine-naloxone 2-0.5 mg daily. - Continue buspirone 15 mg three times per day and lamotrigine 25 mg, two tablet daily ordreded with one refill pending follow up with PCP or establishing mental health services. - Follow up in two months or sooner, if needed. - Call with questions or concerns to [facility]. - Patient verbalized and agreed with plan of care. Scribe Plan - Not visible on output: Patient was informed and verbally consented to the use of an ambient scribe for clinical note documentation during this visit. Coding Level of Care Code Est Pt Level 4 (24509) Diagnoses Opioid use disorder, moderate, in sustained remission F11.21 MDD (major depressive disorder), recurrent episode, moderate F33.1 Generalized anxiety disorder F41.1
--- OUTSIDE RECORDS SUMMARY | 2024-12-22 12:21 | XMS_ITS | Data Portability ---
Author Organization [facility], , [facility] OFFICE Address [address] [place] [address] Care Team Providers Care Cras Name Role Phone ANABELLA TSE Psychiatrist HALEY SKELTON [facility] [phone] LILIYA HENRY Primary Care Provider [facility] Sliver Cutter [phone] Assessment Encounter Date Assessment Date Assessment LastModified by Organization Details LastModified Time 02/22/2023 02/22/2023 Patient agreed t o this visit via a secure telehealth platform. Patient understands this is a scheduled visit and the usual procedures with regard to billing and confidentiality apply. Patient was notified that the provider location is home Patient location: home During the visit the patient s medical history and medical record were reviewed. The patient was notified to call our office for worsening or urgent symptoms. [email or web address] Not available 02/22/2023 11:24:21 Plan of Treatment Reminders Order Date Submit Date Provider Last Modified By Organization Details Last Modified Time Details Appointments None recorded. Lab CBC 2024 025 [facility], [address] [place], [address], 5 12:19:22 CMP, serum or plasma 2024 025 [facility], [address] [place], [address], 5 15:59:30 erythrocyte sedimentati on rate by westergren method 2024 025 [facility], [address] [place] [address], [address], 5 15:10:22 urinalysis, dipstick 2023 024 [facility], [address] [place] [address], [address], 4 17:03:47 culture, urine 2023 024 [facility], [address] [place] [address], [address], 4 06:47:41 urinalysis, dipstick [email or web address] [place] [address] [facility]oc, [address] [place] [address], [address], 4 12:34:25 culture, urine 2023 024 [facility], [address] [place] [address], [address], 4 16:08:40 SARS CoV 2 RNA (COVID-19), QL, fixer boarding room-PCR, respiratory specimen - SOURCE: NASAL 2021 022 [facility], [address] [place] [address], [address], 2 14:45:45 rapid flu (A+B) 2021 022 [facility], [address] [place] [address], [address], 2 16:12:22 Referral None recorded. Procedures colonoscopy procedure (PROC) - Please book the pt at [facility] as the patient has an outstanding balance. If the patient has any questions please have them call [facility] dept. Thank you [email or web address] [facility] vanessa, [address] [place] [address], [address], 5 16:10:23 Surgeries None recorded. Imaging MAMMO, screening, tomosynthes is, bilateral - 2nd Look Consult/Leila g Mammo/US Breast/Guid ed Asp/Breast Bx/Clip Placement, as clinically indicated. [email or web address] (Imaging), [address], [place], [address], 5 12:17:44 CT, abdomen, w/ contrast - Severe LLQ pain, intermitten t, with elevated temp. Rule out diverticuli tis. Pt hx of appendectom y and cholecystec jennifer. 2024 025 [email or web address] 456 [facility], [address] [place], [address], 5 13:16:12 Medication Orders Bactrim DS 800 mg-160 mg tablet 2023 024 [email or web address] 6 [facility], [address] [place], [address], 5 10:25:35 ciprofloxac in 500 mg tablet 2023 024 [email or web address] 6 [facility], [address] [place], [address], 5 10:24:50 nitrofurant oin monohydrate /macrocryst als 100 mg capsule 2022 023 [email or web address] [facility], [address] [place], [address], 4 12:09:01 molnupiravi r 200 mg capsule (EUA) 2022 023 [email or web address] 7 [facility], [address] [place], [address], 4 16:47:52 Tamiflu 75 mg capsule 2021 022 [email or web address] 7 [id number], [address] [facility], [place], [address], 3 11:01:38 Patient TargetsNo targets recorded. Patient Instructions Encounter Date Encounter Id Patient Instructions Last Modified By Organization Details Last Modified Time 05/24/2022 [id number] deciding about using medicines to quit smoking [email or web address] Not available 05/24/2022 16:05:35 Quitting Tobacco : Care Instructions [email or web address] Not available 05/24/2022 16:05:35 Upper Respirator y Infection Drink plenty of fluids, such as water, diluted juice, decaffeinated tea, or clear broth. Avoid dairy products if they cause you congestion. Use a nasal rinse, such as Netti Pot. Keep room humidified and take warm showers for the steam. Over the counter products for congestion and cough are OK, but will only provide partial relief. If you have high blood pressure, check with your pharmacist for safe alternatives. Remember that cold symptoms can last as long as 2-3 weeks: stuffiness, cough and sore throat. Mucinex (generic name is guaifenesin) can help thin mucus and make the cough easier to break up. Please call if your symptoms worsen considerably in 3 days, or you have a high fever. [email or web address] Not available 05/24/2022 14:10:24 Counseling done Goal for follow up visit My Health To Do List Not available 05/24/2022 14:15:07 Reason for Referral None Reported. Results Created Date Observation Date Name Description Value Unit Range Abnormal Flag Note LastModifiedBy Organization Detail LastModifiedTime 05/24/20 22 05/24/2022 POC FLU flu A POC POSITI VE positive Not Available [facility] [address] [place], [address], 05/24/2022 16:12:22 05/24/20 22 05/24/2022 POC FLU flu B POC NEGATI VE Not Available [facility] [address] [place], [address], 05/24/2022 16:12:22 05/24/20 22 05/25/2022 SARS- COV-2 RNA (COVI D-19) , QUALI TATIV E NAAT sarscov2 NEGATI VE negati ve normal This test has been autho rized by the FDA under an Emerg ency Use Autho rizat ion(E UA) for you by autho rized labs. Not Available [address], [address], 05/25/2022 14:45:44 06/16/1906/16/2023 POC UA glu UA NEGATI VE Not Available [facility] [address] [place] [address], [address], 06/16/2023 12:17:06 06/16/1906/16/2023 POC UA clarity UA CLEAR Not Available [facility] [address] [place] [address], [address], 06/16/2023 12:17:06 06/16/19 24 06/16/2023 POC UA uro UA 0.2000 Not Available [facility] [address] [place] [address], [address], 06/16/2023 12:17:06 06/16/19 24 06/16/2023 POC UA ket UA NEGATI VE Not Available [facility] [address] [place] [address], [address], 06/16/2023 12:17:06 06/16/19 24 06/16/2023 POC UA pro UA NEGATI VE Not Available [facility] [address] [place] [address], [address], 06/16/2023 12:17:06 06/16/19 24 06/16/2023 POC UA nit UA NEGATI VE Not Available [facility] [address] [place] [address], [address], 06/16/2023 12:17:06 06/16/19 24 06/16/2023 POC UA thania UA TRACE abnormal Not Available [facility] [address] [place] [address], [address], 06/16/2023 12:17:06 06/16/19 24 06/16/2023 POC UA pH UA 7.0000 Not Available [facility] [address] [place] [address], [address], 06/16/2023 12:17:06 06/16/19 24 06/16/2023 POC UA SG UA 1.0100 Not Available [facility] [address] [place] [address], [address], 06/16/2023 12:17:06 06/16/19 24 06/16/2023 POC UA color UA LIGHT YELLOW Not Available [facility] [address] [place] [address], [address], 06/16/2023 12:17:06 06/16/19 24 06/16/2023 POC UA blo UA TRACE- INTACT abnormal Not Available [facility] [address] [place] [address], [address], 06/16/2023 12:17:06 06/16/19 24 06/16/2023 POC UA cassy UA NEGATI VE Not Available [facility] [address] [place] [address], [address], 06/16/2023 12:17:06 06/16/19 24 06/19/2023 CULTU RE, URINE , ROUTI NE culture, urine, routine abnormal CULTU RE, URINE , ROUTI NE Micro Numbe r: [id number] Test Statu s: Final Speci men Sourc e: Urine Speci men Quali ty: Adequ ate Resul t: Great er than 100,0 00 CFU/m L of Esche floyd a coli E.col i ----- ----- ----- - INT CHRIST AMOX/ CLAVU LANAT E S 8 AMPIC ILLIN S 8 AMP/S ULBAC QUISPE S 4 CEFAZ RHODA NR <=4 2 CEFEP CONRADO S <=1 CEFTA ZIDIM E S <=1 CEFTR IAXON E S <=1 CIPRO FLOXA LINDSAY S <=0.2 5 GENTA MICIN S <=1 IMIPE NEM S 0.5 LEVOF LOXAC IN S <=0.1 2 NITRO FURAN TOIN S 32 PIP/T AZOBA CTAM S <=4 TOBRA MYCIN S <=1 TRIME THOPR IM/BRITT LFA S <=20 S=Shonda cepti ble I=Int ermed iate R=Res istan t * = Not Teste d NR = Not Repor padilla NN = See Thera py Comme nts THERA PY COMME NTS Note 1: For infec tions other than uncom plica padilla UTI cause d by E. coli, K. pneum oniae or P. mirab ilis: Cefaz rhoda is resis tant if CHRIST > or = 8 mcg/m L. (Dist ingui shing susce ptibl e versu s inter media te for isola arcadio with CHRIST < or = 4 mcg/m L requi res addit ional testi ng.) Note 2: For uncom plica padilla UTI cause d by E. coli, K. pneum oniae or P. mirab ilis: Cefaz rhoda is susce ptibl e if CHRIST <32 mcg/m L and predi cts susce ptibl e to the oral agent s cefac hardy, cefdi adam, cefpo doxim e, cefpr ozil, cefur oxime , cepha lexin and lorac arbef . Summa ry of Amairani calzada Rios es Glenny nt lubnaog boris calzada have rios ed. Refer ence range s may have been grayson ed. Sex,S pec updat ed to: F Rios ed on: 06/19 Not Available [facility] [address], [address], 06/19/2023 16:08:40 06/21/19 24 06/21/2023 POC UA glu UA NEGATI VE Not Available [facility] [address] [place], [address], 06/21/2023 16:51:07 06/21/19 24 06/21/2023 POC UA clarity UA CLEAR Not Available [facility] [address] [place], [address], 06/21/2023 16:51:07 01/18/20 24 06/21/2023 POC UA uro UA 0.2000 Not Available [facility] [address] [place] [address], [address], 06/21/2023 16:51:07 06/21/19 24 06/21/2023 POC UA ket UA NEGATI VE Not Available [facility] [address] [place] [address], [address], 06/21/2023 16:51:07 06/21/19 24 06/21/2023 POC UA pro UA NEGATI VE Not Available [facility] [address] [place] [address], [address]745, 06/21/2023 16:51:07 06/21/19 24 06/21/2023 POC UA nit UA NEGATI VE Not Available [facility] [address] [place] [address], [address], 06/21/2023 16:51:07 06/21/19 24 06/21/2023 POC UA thania UA NEGATI VE Not Available [facility] [address] [place] [address], [address], 06/21/2023 16:51:07 06/21/19 24 06/21/2023 POC UA pH UA 5.0000 Not Available [facility] [address] [place] [address], [address], 06/21/2023 16:51:07 06/21/19 24 06/21/2023 POC UA SG UA >=1.03 00 Not Available [facility] [address] [place] [address], [address], 06/21/2023 16:51:07 06/21/19 24 06/21/2023 POC UA color UA YELLOW Not Available [facility] [address] [place] [address], [address], 06/21/2023 16:51:07 06/21/19 24 06/21/2023 POC UA blo UA NEGATI VE Not Available [facility] [address] [place] [address], [address], 06/21/2023 16:51:07 06/21/19 24 06/21/2023 POC UA cassy UA NEGATI VE Not Available [facility] [address] [place] [address], 080[address], 06/21/2023 16:51:07 06/21/19 24 06/23/2023 CULTU RE, URINE , ROUTI NE culture, urine, routine CULTU RE, URINE , ROUTI NE Micro Numbe r: [id number] Test Statu s: Final Speci men Sourc e: Urine Speci men Quali ty: Adequ ate Resul t: Less than 10,00 0 CFU/m L of singl e Gram negat mariano organ ism isola padilla. No furth er testi ng will be perfo rmed. If clini vickie indic ated, recol lecti on using a metho d to minim ize conta minat ion, with promp t trans lul to Urine Cultu re Trans port Tube, is recom martir d. Not Available [facility] [address], [place], [address], 06/23/2023 06:47:41 08/30/19 25 08/29/2024 CBC WBC 5.03 K/ L 3.98-1 0.04 Not Available [address], [address], 08/29/2024 12:19:22 08/30/19 25 08/29/2024 CBC RBC 4.52 M/ L 3.93-5 .22 Not Available [address], [address], 08/29/2024 12:19:22 08/30/19 25 08/29/2024 CBC HGB 13.7 g/dL 11.2-1 5.7 Not Available [address], [address], 08/29/2024 12:19:22 03/2808/29/2024 CBC HCT 41.3 % 34.1-4 4.9 Not Available [address], [address], 08/29/2024 12:19:22 08/30/1908/29/2024 CBC MCV 91.4 fL 79.4-9 4.8 Not Available [address], [address], 08/29/2024 12:19:22 08/30/1908/29/2024 CBC MCH 30.3 pg 25.6-3 2.2 Not Available [address], [address], 08/29/2024 12:19:22 08/30/1908/29/2024 CBC MCHC 33.2 g/dL 32.2-3 5.5 Not Available [address], [address], 08/29/2024 12:19:22 08/30/1908/29/2024 CBC plt 217 K/ L 182-36 9 Not Available [address], [address], 08/29/2024 12:19:22 08/30/1908/29/2024 CBC MPV 11.5 fL 9.4-12 .3 Not Available [address], [address], 08/29/2024 12:19:22 08/30/1908/29/2024 CBC neut% 49.0 % 34.0-7 1.1 Not Available [address], [address], 08/29/2024 12:19:22 08/30/1908/29/2024 CBC neut# 2.47 1.56-6 .13 Not Available [address], [address], 08/29/2024 12:19:22 08/30/19 25 08/29/2024 CBC lymph % 41.6 % 19.3-5 1.7 Not Available [address], [address], 08/29/2024 12:19:22 08/30/19 25 08/29/2024 CBC lymph # 2.09 K/ L 1.18-3 .74 Not Available [address], [address], 08/29/2024 12:19:22 08/30/19 25 08/29/2024 CBC mono% 7.8 % 4.7-12 .5 Not Available [address], [address], 08/29/2024 12:19:22 08/30/1908/29/2024 CBC mono# 0.39 0.24-0 .56 Not Available [address], [address], 08/29/2024 12:19:22 08/30/19 25 08/29/2024 CBC eo% 1.0 % 0.7-5. 8 Not Available [address], [address], 08/29/2024 12:19:22 08/30/1908/29/2024 CBC eo# 0.05 0.04-0 .36 Not Available [address], [address], 08/29/2024 12:19:22 08/30/19 25 08/29/2024 CBC baso% 0.4 % 0.1-1. 2 Not Available [address], [address], 08/29/2024 12:19:22 08/30/19 25 08/29/2024 CBC baso# 0.02 0.00-0 .08 Not Available [address], [address], 08/29/2024 12:19:22 08/30/19 25 08/29/2024 CBC RDW-CV 12.9 % 11.7-1 4.4 Not Available [address], [address], 08/29/2024 12:19:22 08/30/19 25 08/29/2024 CBC Ig% 0.200 % 0.000- 1.500 Ig % >0.5 Indic ates possi ble Left Shift Not Available [address], [address], 08/29/2024 12:19:22 08/30/1908/29/2024 CBC Ig# 0.010 0.000- 0.093 Not Available [address], [address], 08/29/2024 12:19:22 08/30/1908/29/2024 CBC NRBC% 0.0 % 0.0-0. 2 Not Available [address], [address], 08/29/2024 12:19:22 08/30/1908/29/2024 CBC NRBC# 0.000 0.000- 0.012 Not Available [address], [address], 08/29/2024 12:19:22 08/30/1908/29/2024 ESR sed rate 2.0 0.0-15 .0 Not Available [address], [address], 08/29/2024 15:10:22 08/30/19 25 08/29/2024 COMP. METAB OLIC PANEL glucose 77 mg/dL 70-100 Not Available [address], [address], 08/29/2024 15:59:30 08/30/19 25 08/29/2024 COMP. METAB OLIC PANEL BUN 21 mg/dL 7-18 high Not Available [address], [address], 08/29/2024 15:59:30 08/30/19 25 08/29/2024 COMP. METAB OLIC PANEL creatinine 1.2 mg/dL 0.8-1. 3 Not Available [address], [address], 08/29/2024 15:59:30 08/30/19 25 08/29/2024 COMP. METAB OLIC PANEL B/C 17.5 ratio Not Available [address], [address], 08/29/2024 15:59:30 08/30/19 25 08/29/2024 COMP. METAB OLIC PANEL GFR 56.5 mL/mi n abnormal >=60m L/min - Betty l or midly reduc ed <60mL /min- Decre ased kidne y funct ion <15mL /min - Kidne y failu re [facility] calcu lates estim ated Glome rular Filtr ation Rate (eGFR ) using the Chron ic Kidne y Disea se Epide miolo gy Colla borat ion (CKD- EPI) Equat ion (Kyle r et. al 2020) as recom martir d by the Natio nal Kidne y Found ation . eGFR is based on age, serum creat inine , and sex. CKD-E PI does not calcu late eGFR by race, does not apply to child lashonda (age <18 years ), and shoul d not be used in pregn ori. Not Available [address], [address], 08/29/2024 15:59:30 08/30/19 25 08/29/2024 COMP. METAB OLIC PANEL sodium 142 mmol/ L 136-14 5 Not Available [address], [address], 08/29/2024 15:59:30 08/30/19 25 08/29/2024 COMP. METAB OLIC PANEL potassium 5.0 mmol/ L 3.5-5. 1 Not Available [address], [address], 08/29/2024 15:59:30 08/30/19 25 08/29/2024 COMP. METAB OLIC PANEL chloride 103 mmol/ L 96-107 Not Available [address], [address], 08/29/2024 15:59:30 08/30/19 25 08/29/2024 COMP. METAB OLIC PANEL anion gap 9.8 5.0-15 .0 Not Available [address], [address], 08/29/2024 15:59:30 08/30/19 25 08/29/2024 COMP. METAB OLIC PANEL CO2 29 mmol/ L 21-32 Not Available [address], [address], 08/29/2024 15:59:30 08/30/19 25 08/29/2024 COMP. METAB OLIC PANEL calcium 9.7 mg/dL 8.5-10 .3 Not Available [address], [address], 08/29/2024 15:59:30 08/30/19 25 08/29/2024 COMP. METAB OLIC PANEL total protein 7.0 g/dL 6.4-8. 2 Not Available [address], [address], 08/29/2024 15:59:30 08/30/19 25 08/29/2024 COMP. METAB OLIC PANEL albumin 4.3 g/dL 3.4-5. 0 Not Available [address], [address], 08/29/2024 15:59:30 08/30/19 25 08/29/2024 COMP. METAB OLIC PANEL globulin 2.7 g/dL Not Available [address], [address], 08/29/2024 15:59:30 08/30/19 25 08/29/2024 COMP. METAB OLIC PANEL A/G 1.6 ratio 0.8-2. 0 Not Available [address], [address], 08/29/2024 15:59:30 08/30/19 25 08/29/2024 COMP. METAB OLIC PANEL total bilirubin 0.40 mg/dL 0.00-1 .00 Not Available [address], [address], 08/29/2024 15:59:30 08/30/19 25 08/29/2024 COMP. METAB OLIC PANEL AST 21 U/L 0-37 Not Available [address], [address], 08/29/2024 15:59:30 08/30/19 25 08/29/2024 COMP. METAB OLIC PANEL ALT 29 U/L 6-63 Not Available [address], [address], 08/29/2024 15:59:30 08/30/19 25 08/29/2024 COMP. METAB OLIC PANEL alk. phos. 89 U/L 50-136 Not Available [address], [address], 08/29/2024 15:59:30 09/16/19 25 09/17/2024 ANATO CHRIST PATHO LOGY path report [facility] [address] t [facility] [place] [address] Lab Direc tor: Ranulfo white MD Surgi deangelo Patho logy Repor t Acces musa #: [id number] FINAL PATHO LOGIC DIAGN OSIS: A. DUODE NUM, BIOPS Y: No patho logic abnor malit ies. B. STOMA CH ANTRU M, BIOPS Y: No patho logic abnor malit ies. C. ESOPH ZAY, BIOPS Y: No patho logic abnor malit ies. D. ILEUM , BIOPS Y: No patho logic abnor malit ies. Irma ctron icall y Leeann d Out By Lumin noreen ortega MD By his/h er signa sonyae above , the patho logis t liste d as josh fernandez the Final Diagn osis certi fies that he/sh e has perso gabby revie wed this case and confi rmed or corre cted the diagn osis. CLINI DEANGELO HISTO RY Preop erati ve diagn osis: Abdom inal pain, weigh t loss, date of last colon oscop y: 2012 Posto perat mariano diagn osis: Betty l colon oscop y SPECI MENS SUBMI TTED: A: DUODE NUM, BIOPS Y B: STOMA CH ANTRU M, BIOPS Y C: ESOPH ZAY, BIOPS Y D: ILEUM , BIOPS Y GROSS DESCR IPTIO N A. DUODE NUM, BIOPS Y: Recei ashly in forma jaime are multi ple irreg ular jackson-p ink soft tissu e fragm ents varyi ng in size from 0.2 x 0.1 x 0.1 cm up to 0.4 x 0.3 x 0.2 cm which are submi tted in toto in singl e casse tte label ed A1. B. STOMA CH ANTRU M, BIOPS Y: Recei ashly in forma jaime are 3 irreg ular jackson-p ink soft tissu e fragm ents varyi ng in size from 0.3 x 0.2 x 0.1 cm to 0.4 x 0.3 x 0.2 cm which are submi tted in toto in singl e casse tte label ed B1. C. ESOPH ZAY, BIOPS Y: Recei ashly in forma jaime are 2 irreg ular jackson-p ink soft tissu e fragm ents measu ring 0.4 x 0.3 x 0.1 cm and 0.5 x 0.3 x 0.1 cm which are submi tted in toto in a singl e casse tte label ed C1. D. ILEUM , BIOPS Y: Recei ashly in forma jaime are 4 irreg ular jackson-p ink soft tissu e fragm ents measu ring on avera ge 0.4 x 0.2 x 0.2 cm which are submi tted in toto in a singl e casse tte label ed D1. Gross ed by: Adryan Carlos y, MHS, PA( CP) [id number] 2024 Gross ing Staff : [id number] Patie nt Name: CARYN ANDINO. : 1975 (Age: 48) Sex: F 5 Insti tutio n: [facility] Locat ion: [facility] Date of Opera tion: 2024 Date of Acces musa: 2024 Repor padilla: 2024 13:57 Resul ts To: Shahriar soto MD, AB Celine polo Medic al Speci altie s Makayla Utzsc hneid er DIRECTOR EHS Not Available [facility] (Outpatient) [address] [place] [address], [address], 09/17/2024 15:07:58 09/16/19 25 08/31/2024 CT, abdom en + pelvi s, w/o contr ast No observ ation record ed. [facility] [address] [place] [address], [address], 09/15/2024 09:37:55 Result Notes None recorded. Procedures Surgical History Date Name Laterality Status Provider Name and Address Organization Details Recorded Time 5 Catina - EGD completed Shahriar Dominique MD [address] [place] [address], [phone], [facility] 09/15/2024 13:08:39 5 Catina - Colonoscopy completed Shahriar Dominique MD [address] [place] [address], [phone], [facility] 09/15/2024 13:10:20 Imaging Results None recorded. Procedure Notes None recorded. Medical Equipment None Reported. Allergies Allergen ID Allergen Name Allergen Category Reaction Reaction Severity Criticality Documentation Date Start Date Code Code System Note Provider Name and Address Organization Details Recorded Time [id number] Iodinated contrast media (substanc e) medicatio n anaphylax is Not available Not available 09/11/2024 80791 2003 PAUL [facility] 5 15:25:42 707118 Product containin g penicilli n (product) medicatio n hives Not available Not available 09/11/2024 [id number] PAUL [place] [facility] 5 15:26:08 Medications Name Sig Start Date Stop Date Status Note LastModified by Organization Details LastModified Time carisopro dol 350 mg tablet TK 1 T PO BID 09/16 completed Not Available Not Available Not Available cyclobenz aprine 10 mg tablet 10mg TID PRN 06/16 completed Not Available Not Available Not Available clotrimaz ole 10 mg jody Take 1 tablet 5 times a day by oral route for 7 days. active Not Available Not Available No t Available fentanyl 50 mcg/hr transderm al patch APPLY 1 PATCH EVERY 3 DAYS active Not Available Not Available No t Available bupropion HCl SR 150 mg tablet,12 hr sustained -release 01/23 completed Not Available Not Available Not Available Colace 100 mg capsule Take 1 capsule twice a day by oral route. 06/16 completed per 09/13 hosp med dc list Not Available Not Available Not Available clonidine HCl 0.1 mg tablet TAKE 1 TABLET BY MOUTH 3 TIMES A DAY FOR 3 DAYS 05/24 completed Not taking at this time 05/24/22 JF Not Available Not Available Not Available gabapenti n 600 mg tablet TK 1 T PO QID FOR 7 DAYS 06/16 completed Not Available Not Available Not Available Carafate 100 mg/mL oral suspensio n TAKE 2 TEASPOON SFUL BY MOUTH AT BEDTIME active Not Available Not Available No t Available clindamyc in HCl 300 mg capsule TAKE 1 CAPSULE BY MOUTH EVERY 6 HOURS FOR 7 DAYS 08/29 completed Not Available Not Available Not Available citalopra m 40 mg tablet TAKE 1 TABLET BY MOUTH EVERY DAY active Not Available Not Available No t Available trazodone 50 mg tablet TAKE ONE TABLET BY MOUTH EVERY DAY 02/22 completed no longer using 09/19/21 CR Not Available Not Available Not Available Carafate 1 gram tablet Take 1 tablet every day by oral route at bedtime. active per 04/17 [facility] med dc list Not Available Not Available Not Available azithromy lindsay 250 mg tablet TAKE 2 TABLET ON FIRST DAY THEN 1 TABLET DAILY FOR 4 MORE DAYS 05/24 completed no longer using 1ab/Not taking at this time 05/24/22 JF Not Available Not Available Not Available ibuprofen 800 mg tablet TAKE 1 TABLET BY MOUTH EVERY 8 HOURS NEEDED FOR PAIN 08/29 completed Not Available Not Available Not Available alprazola m 1 mg tablet Take 1 tablet 3 times a day by oral route for 14 days. active Not Available Not Available No t Available Lidocaine Viscous 2 % mucosal solution Take 10 ml and gargle and spit every 2-4 hours as needed active Not Available Not Available No t Available tizanidin e 4 mg tablet TAKE 1 TABLET ORALLY BEDTIME NEEDED FOR MUSCLE SPASTICI TY active Not Available Not Available No t Available fluconazo le 150 mg tablet TAKE 1 TABLET BY MOUTH EVERY 72 HOURS 01/23 completed Not Available Not Available Not Available citalopra m 10 mg tablet TAKE 1 TABLET ORALLY DAILY TAKE ONE TAB DAILY FOR ONE WEEK THEN INCREASE TO 2 TABS DAILY 06/21 completed Not Available Not Available Not Available OxyContin 20 mg tablet,ex tended release active Not Available Not Available Not Available hydrocodo ne 5 mg-acetam inophen 325 mg tablet TAKE 1 TABLET BY MOUTH EVERY 4 TO 6 HOURS NEEDED FOR PAIN 08/29 completed Not Available Not Available Not Available senna 8.6 mg tablet Take 2 tablets every day by oral route at bedtime. 06/16 completed per 09/13 med dc list Not Available Not Available Not Available ondansetr on HCl 4 mg tablet TAKE 1 TABLET BY MOUTH EVERY 6 HOURS NEEDED FOR NAUSEA active Not Available Not Available No t Available prednison e 20 mg tablet TK 1 T PO QD FOR 5 DAYS 05/04 completed Not Available Not Available Not Available clonazepa m 0.5 mg tablet U UTD ACCORDIN G TO TAPER SCHEDULE GIVEN BY PHYSICIA N active Not Available Not Available No t Available rizatript an 10 mg tablet TAKE 1 TABLET BY MOUTH AT ONSET OF HEADACHE . MAY REPEAT DOSE EVERY 2 HOURS FOR 2 DOSES 06/16 completed Not Available Not Available Not Available gabapenti n 400 mg capsule Take 1 capsule 4 times a day by oral route. 2012 active per 04/17 [facility] med dc list. Dose increase d from tid to qid Not Available Not Available Not Available sertralin e 100 mg tablet TAKE 1 TABLET BY MOUTH EVERY DAY 01/23 completed Not Available Not Available Not Available clonazepa m 1 mg tablet TAKE 1 TABLET BY MOUTH AT BEDTIME 09/05 completed Not Available Not Available Not Available atenolol 25 mg tablet TK 1 T PO QD 06/16 completed Not Available Not Available Not Available clindamyc in HCl 150 mg capsule 01/23 completed Not Available Not Available Not Available promethaz ine 6.25 mg-codein e 10 mg/5 mL syrup TAKE 5ML BY MOUTH EVERY 4 HOURS NEEDED FOR COUGH 05/24 completed no longer using 1ab Not Available Not Available Not Available metronida zole 500 mg tablet TAKE 1 TABLET BY MOUTH EVERY 12 HOURS FOR 7 DAYS 01/23 completed Not Available Not Available Not Available hydroxyzi ne HCl 50 mg tablet 09/05 completed Not Available Not Available Not Available ciproflox acin 500 mg tablet TAKE 1 TABLET BY MOUTH EVERY 12 HOURS FOR 7 DAYS 08/29 completed Not Available Not Available Not Available morphine ER 30 mg tablet,ex tended release Take 1 tablet 3 times a day by oral route as needed. active Not Available Not Available No t Available sulfameth oxazole 800 mg-trimet hoprim 160 mg tablet Take 1 tablet every 12 hours by oral route for 14 days. 08/29 completed Not Available Not Available Not Available hydrocodo ne 10 mg-acetam inophen 325 mg tablet active Not Available Not Available Not Available tramadol 50 mg tablet TK 2 TS PO Q 6 H PRF PAIN 09/04 completed Not Available Not Available Not Available quetiapin e 100 mg tablet TK 1 T PO BID 06/16 completed Not Available Not Available Not Available amitripty line 50 mg tablet TAKE 1 TABLET BY MOUTH EVERY DAY 06/13 completed not taking Not Available Not Available Not Available lamotrigi ne 25 mg tablet TAKE 2 TABLETS ORALLY DAILY FOR 30 DAYS active Not Available Not Available No t Available oxycodone 15 mg tablet TAKE 1 TABLET BY MOUTH EVERY 6 HOURS NEEDED 05/24 completed Not Available Not Available Not Available Miconazol e-7 2 % vaginal cream insert 9 gram vaginall y once daily for 7 days active Not Available Not Available No t Available oxycodone -acetamin ophen 5 mg-325 mg tablet active Not Available Not Available Not Available alprazola m 0.5 mg tablet take 1 tablet by mouth three times a day if needed active Not Available Not Available No t Available hydromorp royal 2 mg tablet TK 1 TO 3 TS PO Q 3 H PRN 06/16 completed Not Available Not Available Not Available citalopra m 20 mg tablet TAKE 1 TABLET BY MOUTH DAILY 06/21 completed Not Available Not Available Not Available famotidin e 20 mg tablet active Not Available Not Available Not Available amitripty line 25 mg tablet Take 1 tablet every day by oral route. active Not Available Not Available No t Available lorazepam 0.5 mg tablet TAKE 1 TABLET BY MOUTH TWICE DAILY NEEDED 02/22 completed Not Available Not Available Not Available metoclopr amide 5 mg tablet TAKE 1 TABLET BY MOUTH FOUR TIMES DAILY NEEDED 06/16 completed Not Available Not Available Not Available trazodone 100 mg tablet 01/23 completed Not Available Not Available Not Available dexametha sone 1 mg tablet TK 1 T PO Q 6 HOURS. START 09/14 AT 6PM 06/16 completed Not Available Not Available Not Available phenazopy ridine 100 mg tablet take 1 tablet by mouth three times a day for 2 days active Not Available Not Available No t Available benzonata te 100 mg capsule TK 1 C PO TID PRF COUGH 05/04 completed Not Available Not Available Not Available dexametha sone 2 mg tablet TK 1 T PO Q 6 HOURS 06/16 completed Not Available Not Available Not Available oseltamiv ir 75 mg capsule TAKE 1 CAPSULE BY MOUTH TWICE A DAY FOR 5 DAYS 02/22 completed Not Available Not Available Not Available buspirone 10 mg tablet TAKE 1 TABLET BY MOUTH THREE TIMES A DAY 08/29 completed Not Available Not Available Not Available promethaz ine 25 mg tablet take 1 tablet by mouth three times a day active Not Available Not Available No t Available indometha lindsay 25 mg capsule TAKE 1 CAPSULE BY MOUTH 3 TIMES A DAY NEEDED FOR CHEST PAIN active Not Available Not Available No t Available oxycodone 5 mg capsule Take 1 capsule every 4 hours by oral route as needed. 04/05 completed per 12/30 [facility] med dc list Not Available Not Available Not Available gabapenti n 300 mg capsule TK ONE C PO Q 8 H 06/16 completed Not Available Not Available Not Available buspirone 7.5 mg tablet TAKE 1 TABLET(S ) BY MOUTH TWICE A DAY FOR ANXIETY 06/21 completed Not Available Not Available Not Available omeprazol e 20 mg capsule,d elayed release TAKE ONE CAPSULE BY MOUTH EVERY DAY active Not Available Not Available No t Available hydroxyzi ne HCl 25 mg tablet TAKE 1 TABLET BY MOUTH THREE TIMES DAILY NEEDED 06/16 completed Not Available Not Available Not Available morphine ER 15 mg tablet,ex tended release TK 1 T PO HS 05/04 completed Not Available Not Available Not Available codeine 10 mg-guaife nesin 100 mg/5 mL oral liquid TAKE 10 ML BY MOUTH EVERY 4 HOURS NEEDED 05/24 completed Not taking at this time 05/24/22 JF Not Available Not Available Not Available bisacodyl 5 mg tablet,de layed release TAKE 4 TABLETS BY MOUTH PATIENT HAS INSTRUCT ION, FOR 1 DAY active Not Available Not Available No t Available Monurol 3 gram oral packet MIX CONTENTS OF 1 PACKET WITH 3 TO 4 OZ OF WATER AND DRINK PO ONCE 07/18 completed Not Available Not Available Not Available oxycodone 30 mg tablet TK 1 T PO Q 6 H PRN 06/16 completed Not Available Not Available Not Available lorazepam 1 mg tablet TAKE 1 TABLET TWICE DAILY NEEDED FOR ANXIETY 02/22 completed Not Available Not Available Not Available fentanyl 25 mcg/hr transderm al patch PLACE 1 PATCH ONTO THE SKIN Q THIRD DAY 06/16 completed Not Available Not Available Not Available albuterol sulfate HFA 90 mcg/actua tion aerosol inhaler INL 2 PUFFS PO Q 6 TO 8 H 02/22 completed Not Available Not Available Not Available celecoxib 100 mg capsule TK 1 C PO BID 06/16 completed Not Available Not Available Not Available morphine 15 mg immediate release tablet TAKE 1 TABLET (15 MG TOTAL) BY MOUTH EVERY 4 HOURS NEEDED FOR PAIN ,PARTIAL FILL OK active Not Available Not Available No t Available ondansetr on 4 mg disintegr ating tablet TAKE 1 TABLET BY MOUTH EVERY 8 HOURS NEEDED FOR NAUSEA active Not Available Not Available No t Available cefdinir 300 mg capsule TAKE 1 CAPSULE BY MOUTH EVERY 12 HOURS FOR 7 DAYS 05/04 completed Not Available Not Available Not Available sertralin e 50 mg tablet take 1 tablet by mouth once daily active Not Available Not Available No t Available naratript an 2.5 mg tablet TAKE 1 TABLET BY MOUTH AT ONSET OF HEADACHE ; MAY REPEAT AFTER 4 H... (REFER TO PRESCRIP TION NOTES). 01/23 completed prn Not Available Not Available Not Available doxycycli ne hyclate 100 mg tablet TK 1 T PO BID FOR 7 DAYS 05/04 completed Not Available Not Available Not Available dicyclomi ne 10 mg capsule TAKE 1 CAPSULE (10 MG TOTAL) BY MOUTH 4 (FOUR) TIMES A DAY BEFORE MEALS AND NIGHTLY FOR 5 DAYS. active Not Available Not Available No t Available docusate sodium 100 mg tablet Take 1 tablet twice a day by oral route at bedtime. 07/18 completed per 12/30 [facility] med dc list Not Available Not Available Not Available lamotrigi ne 100 mg tablet TAKE 1 TABLET BY MOUTH TWICE A DAY 06/21 completed Not Available Not Available Not Available diazepam 5 mg tablet TAKE 1 TABLET BY MOUTH 4 TIMES DAILY NEEDED FOR 3 DAYS FOR MUSCLE SPASM active Not Available Not Available No t Available buspirone 15 mg tablet TAKE 1 TABLET BY MOUTH 3 TIMES A DAY active Not Available Not Available No t Available oxycodone 5 mg tablet TK 2 TS PO BID 07/18 completed Not Available Not Available Not Available hydroxyzi ne pamoate 25 mg capsule TAKE 1 CAPSULE BY MOUTH 3 TIMES A DAY FOR 3 DAYS NEEDED FOR ITCHING 05/24 completed Not taking at this time 05/24/22 JF Not Available Not Available Not Available DentaGel 1.1 % 01/06 completed Not Available Not Available Not Available azithromy lindsay 500 mg tablet TAKE 1 TABLET DAILY FOR 3 DAYS active Not Available Not Available No t Available escitalop sacha 10 mg tablet TAKE 1 AND 1/2 TABLETS BY MOUTH DAILY 02/22 completed Not Available Not Available Not Available escitalop sacha 20 mg tablet TAKE 1 AND 1/2 TABLETS BY MOUTH DAILY 02/22 completed Not Available Not Available Not Available bupropion HCl XL 150 mg 24 hr tablet, extended release TAKE 1 TABLET BY MOUTH TWICE DAILY 06/16 completed Not Available Not Available Not Available nitrofura ntoin monohydra te/macroc rystals 100 mg capsule TAKE 1 CAPSULE BY MOUTH EVERY 12 HOURS FOR 5 DAYS 06/16 completed Not Available Not Available Not Available fentanyl 12 mcg/hr transderm al patch UNW AND ANGLE 1 PA TO SKIN Q 3 DAYS 09/04 completed Not Available Not Available Not Available melatonin 4mg at hs 2012 active per 04/17 [facility] med dc list. new for Sleep Not Available Not Available Not Available OxyContin 30mg tid active not on [facility] med list. Pt reports taking ordered by Dr Skelton for pain manageme nt Not Available Not Available Not Available Decadron 1mg q6 hours for 4 doses. Starting 09/14 @ 6pm 06/16 completed course complete d Not Available Not Available Not Available naloxone 1 kit intranas al routine. 1 dose. prn 06/16 completed per 09/13 hospital med dc list. Not Available Not Available Not Available clindamyc in HCl 450mg 1 cap TID 01/12 completed per 12/30 [facility] dc list- for five days. 12/30-01/04 . Not Available Not Available Not Available quetiapin e 50 mg tablet TAKE 1 TABLET BY MOUTH EVERY MORNING, 1 TABLET AT NOON AND THEN TAKE 2 TABLETS EVERY NIGHT AT BEDTIME 09/05 completed Not Available Not Available Not Available OxyContin 30 mg tablet,ex tended release active Not Available Not Available Not Available oxycodone 10 mg tablet TAKE 1 TABLET (10 MG TOTAL) BY MOUTH EVERY 6 (SIX) HOURS NEEDED 05/24 completed Not Available Not Available Not Available Adacel (Tdap Adolesn/A dult)(PF) 2 Lf-(2.5-5 -3-5)-5 Lf/0.5 mL IM syringe inject 0.5 millilit er intramus cularly active Not Available Not Available No t Available GaviLyte- G 236 gram-22.7 4 gram-6.74 gram-5.86 gram oral solution USE DIRECTED active Not Available Not Available No t Available buprenorp ben 2 mg-naloxo ne 0.5 mg sublingua l film TAKE 1 FILM SUBLINGU ALLY DAILY active Not Available Not Available No t Available buprenorp ben 8 mg-naloxo ne 2 mg sublingua l film PLACE 1 FILM UNDER THE TONGUE ONCE DAILY 05/24 completed Not taking at this time 05/24/22 JF Not Available Not Available Not Available buprenorp ben 12 mg-naloxo ne 3 mg sublingua l film USE 1 FILM UNDER THE TONGUE ONCE EVERY 24 HOURS 05/24 completed Not taking at this time 05/24/22 JF Not Available Not Available Not Available Monistat 7 2 %(100 mg)-2 %(9 gram)vagi nal,prefi l applicato r and cream Insert 9 g every day by vaginal route for 7 days. 2014 active Not Available Not Available Not Avai lable Afluria 9730-9992 (PF) 45 mcg (15 mcg x 3)/0.5 mL intramusc ular syringe active Not Available Not Available Not Available OxyContin 30 mg tablet,cr ush resistant ,extended release TAKE 1 TABLET EVERY 8 HOURS active Not Available Not Available No t Available OxyContin 20 mg tablet,cr ush resistant ,extended release Take 1 tablet every 12 hours by oral route. 09/16 completed New. pain manageme nt by Dr. Skelton per 09/13 hosp med dc list Not Available Not Available Not Available Fluvirin 1735-6530 45 mcg (15 mcg x 3)/0.5 mL intramusc ular suspensio n ADM 0.5ML IM UTD 04/05 completed Not Available Not Available Not Available Tylenol 325 mg capsule Take 3 capsules 3 times a day by oral route. 06/16 completed per 09/13 hosp dc med list (975mg x 3) Not Available Not Available Not Available Lagevrio 200 mg capsule (EUA) TAKE 4 CAPSULES BY MOUTH EVERY 12 HOURS FOR 5 DAYS 06/21 completed Not Available Not Available Not Available Vitals None Recorded Social History Question Answer Notes LastModified by Organizat ion Details LastModified Time Which Illicit Or Recreational Drugs Have You Used? Denies Information not available 04/16/2015 How Many Days In The Past Year Have You Had A Heavy Drinking Consumption (4+ Female, 5+ Male)? 0 Information not available 03/21/2013 Live Alone Or With Others? With Others Information not available 12/18/2012 Marital Status Pablito Hadley -working On Their Relationship Information not available 12/18/2012 What Was The Date Of Your Most Recent Tobacco Screening? 08/29/2024 06/21/23 BRIAN [email or web address] Information not available 08/29/2024 How Many Children Do You Have? 3 Kay (1998), Sanam (2000), Tye (2005) Information not available 12/18/2012 What Is Your Current Pack Years? 10-19packy ears Smokes 1/2 Ppd; 10.5 Pack Years [email or web address] Information not available 01/05/2015 How Much Tobacco Do You Smoke? 0.5 PPD [email or web address] Information not available 06/13/2019 General Stress Level High Information not available 12/31/2014 Sex: Female Functional Status Question Answer Note LastModified by Organizat ion Details LastModified Time Do you or have you ever used any other forms of tobacco or nicotine? Yes [email or web address] Information not available 05/24/2022 What is your level of alcohol consumption? Occasional socially 06/21/23 BRIAN [email or web address] Information not available 06/21/2023 Do you or have you ever used smokeless tobacco? Never used smokeless tobacco [email or web address] Information not available 06/16/2019 Do you or have you ever used e-cigarettes or vape? Current user of electronic cigarettes occasional [email or web address] Information not available 06/16/2019 Mental Status None recorded. Family History Relationship Description Onset Age of this Age Resolved Age Notes LastModified by Organization Details LastModified Time Mother Depressive disorder severe + anxiet y (previ ously record ed as Depres musa) [email or web address] Not available 09/28/2015 14:01:42 Mother Osteoporosis [email or web address] Not availa ble 09/28/2015 14:01:42 Mother Chronic obstructive pulmonary disease hx tobacc o (quit) (previ ously record ed as COPD) [email or web address] Not available 09/28/2015 14:01:42 Maternal Grandfather Malignant neoplastic disease 80 ?metas tatic (previ ously record ed as Cancer ) [email or web address] Not available 09/28/2015 14:01:42 Maternal Grandfather Diabetes mellitus previo usly record ed as Diabet es [email or web address] Not available 09/28/2015 14:01:42 Maternal Grandfather Heart disease CAD s/p bypass [email or web address] Not available 09/28/2015 14:01:42 Maternal Grandfather Cerebrovascu lar accident previo usly record ed as Stroke [email or web address] Not available 09/28/2015 14:01:42 Maternal Grandmother Osteoporosis [email or web address] Not available 0 09/28/2015 14:01:42 Maternal Grandmother Arthritis [email or web address] Not available 09/03 14:01:42 Maternal Grandmother Peptic ulcer [email or web address] Not available 0 09/28/2015 14:01:42 Maternal Grandmother Hypertensive disorder previo usly record ed as Hypert ension [email or web address] Not available 09/28/2015 14:01:42 Maternal Grandmother Depressive disorder and anxiet y (previ ously record ed as Depres musa) [email or web address] Not available 09/28/2015 14:01:42 Paternal Aunt Kidney disease 60 [email or web address] Not available 2015 14:01:42 Father Problem unknow n [email or web address] Not available 09/28/2015 14:01:42 Brother Seizure disorder 22 [email or web address] Not available 2015 14:01:42 Medical History Condition Response Anxiety Y GASTROINTESTINAL Y Depression Y Chronic Back Pain Y Migraine Headaches Y Gynecological History Statement/Question Response Current Control Method IUD Obstetrics History GPAL:G 0 P 0 0 0 0 Past Encounters Encounter ID Performer Location Encounter Start Date Encounter Closed Date Diagnosis/Indication Diagnosis SNOMED-CT Code Diagnosis ICD10 Code Diagnosis Note [id number] KEN Rivero, [facility], OFFICE [address] [place] [address] 04/24/2000 10:45:00 06/24/2008 02:02:29 [id number] Marysol Lucio M.D . Radiology , [address] [address] 06/19/2000 11:15:00 06/24/2008 02:02:29 [id number] FP TREATMENT NURSE [facility] FP, [facility], [address] [place] [address] 06/20/2000 08:15:00 06/24/2008 02:02:29 [id number] KEN Rivero, [facility], [address] [place] [address] 06/21/2000 09:30:00 06/24/2008 02:02:29 [id number] Loretta Robles , [facility], [address] [place] [address] 07/09/2000 11:45:00 06/24/2008 02:02:29 [id number] KEN Rivero , [facility], [address] [place] [address] 06/18/2000 14:30:00 06/24/2008 02:02:29 [id number] Abel Dubois MD , [facility], [address] [place] [address] 08/14/2000 14:45:00 06/24/2008 02:02:29 [id number] KEN Rivero , [facility], [address] [place] [address] 08/20/2000 15:30:00 06/24/2008 02:02:29 [id number] KEN Rivero , [facility], [address] [place] [address] 09/10/2000 15:30:00 06/24/2008 02:02:29 [id number] Abel Dubois MD , [facility], [address] [place] [address] 09/12/2000 14:15:00 06/24/2008 02:02:29 [id number] Raman Meade , [facility], [address] [place] [address] 09/14/2000 10:45:00 06/24/2008 02:02:29 [id number] Abel Dubois MD [facility] [address] [place] [address] 09/22/2000 15:30:00 06/24/2008 02:02:29 [id number] Loretta Franco. [facility]-I [address] [address] 11/18/2000 00:00:00 06/24/2008 02:02:29 [id number] Loretta Franco. [facility] [address] [place] [address] 11/18/2000 00:00:00 06/24/2008 02:02:29 [id number] Martin Bourgeois MD [facility] [address] [place] [address] 11/19/2000 00:00:00 06/24/2008 02:02:29 [id number] Marysol Lucio M.D . , [facility], [address] [place] [address] 12/20/2000 09:45:00 06/24/2008 02:02:29 [id number] Abel Dubois MD , [facility], [address] [place] [address] 12/21/2000 09:00:00 06/24/2008 02:02:29 [id number] Abel Dubois MD , [facility], [address] [place] [address] 02/18/2001 10:45:00 06/24/2008 02:02:29 [id number] Abel Dubois MD , [facility], [address] [place] [address] 03/11/2001 15:00:00 06/24/2008 02:02:29 [id number] Abel Dubois MD , [facility], [address] [place] [address] 04/17/2001 11:00:00 06/24/2008 02:02:29 [id number] Abel Dubois MD , [facility], [address] [place] [address] 07/08/2001 15:45:00 06/24/2008 02:02:29 [id number] Cinthya Garcia NP , [facility], [address] [place] [address] 07/31/2001 10:15:00 06/24/2008 02:02:29 [id number] Cinthya Garcia NP , [facility], [address] [place] [address] 11/11/2001 11:33:35 06/24/2008 02:02:29 [id number] Abel Dubois MD FP, [facility], [address] [place] [address] 10/17/2001 11:00:00 06/24/2008 02:02:29 [id number] MD LEIGH Romeo, [facility], [address] [place] [address] 12/22/2001 09:46:00 06/24/2008 02:02:29 [id number] Cinthya Garcia NP , [facility], [address] [place] [address] 01/30/2002 12:05:35 06/24/2008 02:02:29 [id number] [facility] - [facility] [address] [place] [address] 01/30/2002 13:02:57 06/24/2008 02:02:29 [id number] KEN Rivero, [facility], [address] [place] [address] 03/11/2002 12:28:20 06/24/2008 02:02:29 [id number] Abel Dubois MD , [facility], [address] [place] [address] 03/25/2002 09:43:01 06/24/2008 02:02:29 [id number] [facility] [address] [place] [address] 03/25/2002 09:55:15 06/24/2008 02:02:29 [id number] Cinthya Garcia NP , [facility], OFF[address] [place] [address] 04/03/2002 11:06:04 06/24/2008 02:02:29 [id number] KEN Rivero, [facility], OFFICE [address] [place] [address] 05/09/2002 11:22:18 06/24/2008 02:02:29 [id number] [facility] [address] [place] [address] 05/09/2002 11:55:31 06/24/2008 02:02:29 [id number] [facility] [address] [place] [address] 09/19/2002 16:19:52 06/24/2008 02:02:29 [id number] Cinthya Garcia NP FP, [facility], [address] [place] [address] 09/19/2002 14:54:58 06/24/2008 02:02:29 [id number] Cinthya Garcia NP FP, [facility], [address] [place] [address] 09/24/2002 12:01:31 06/24/2008 02:02:29 [id number] Cinthya Garcia NP FP, [facility], [address] [place] [address] 10/01/2002 14:30:58 06/24/2008 02:02:29 [id number] MD LEIGH Romeo, [facility], OFF[address] [place] [address] 01/09/2003 14:46:09 06/24/2008 02:02:29 [id number] Abel Dubois MD , [facility], OFF[address] [place] [address] 01/15/2003 08:08:46 06/24/2008 02:02:29 [id number] [facility] - [facility] [address] [place] [address] 01/15/2003 09:30:00 06/24/2008 02:02:29 [id number] Cinthya Garcia NP , [facility], OFF[address] [place] [address] 01/29/2003 12:49:20 06/24/2008 02:02:29 [id number] MD LEIGH Sy, [facility], [facility] [address] [place] [address] 01/22/2003 00:00:00 06/24/2008 02:02:29 [id number] MD LEIGH Sy, [facility], [facility] [address] [place] [address] 01/26/2003 00:00:00 06/24/2008 02:02:29 [id number] Radha Escoto MD FP, [facility], [facility] [address] [place] [address] 01/24/2003 00:00:00 06/24/2008 02:02:29 [id number] Cinthya Garcia NP , [facility], OFF[address] [place] [address] 02/09/2003 13:23:31 06/24/2008 02:02:29 [id number] Lu[facility] Olsen Physical [facility], [facility] [address] [place] [address] 02/11/2003 13:49:50 02/11/2003 14:03:17 [id number] Luiza Kocharlie Physical Therapy, [facility] [address] [place] [address] 02/23/2003 13:52:46 02/23/2003 13:53:03 [id number] Luiza Olsen Physical Therapy, [facility] [address] [place] [address] 03/02/2003 12:18:33 03/02/2003 13:32:25 [id number] Loretta Franco. , [facility], [facility]- [address] [place] [address] 01/23/2003 00:00:00 06/24/2008 02:02:29 [id number] Shahriar Arriaga MD , [facility], OFFICE [address] [place] [address] 03/24/2003 12:11:16 03/25/2003 11:55:01 [id number] Abel Dubois MD , [facility], OFFICE [address] [place] [address] 04/23/2003 09:00:09 04/24/2003 09:36:57 [id number] [facility] LAB LAB - [facility] [address] [place] [address] 04/23/2003 09:31:01 04/23/2003 09:35:22 [id number] Abel Dubois MD , [facility], OFFICE [address] [place] [address] 05/12/2003 09:26:04 05/13/2003 08:55:02 [id number] Narinder Mahajan MD , [facility], OFF[address] [place] [address] 12/30/2003 15:00:07 12/31/2003 08:26:20 [id number] Rebeca ABRAHAM, [facility], OFFICE [address] [place] [address] 06/30/2004 15:56:14 07/01/2004 09:30:03 [id number] Rebeca ABRAHAM, [facility], OFFICE [address] [place] [address] 07/01/2004 13:31:37 07/01/2004 15:04:09 [id number] Batsheva Siegel, PT Physical Therapy, [facility] [address] [facility] [place] [address] 05/21/2012 13:13:16 05/31/2012 14:35:56 [id number] Batsheva Siegel, PT Physical Therapy, [facility] [address] [facility] [place] [address] 05/22/2012 14:59:03 05/23/2012 07:49:33 [id number] Batsheva Siegel, PT Physical Therapy, [address] [address] 05/31/2012 13:28:20 06/03/2012 10:04:25 [id number] Bathseva Siegel, PT Physical Therapy, [address] [place] [address] 06/05/2012 13:35:26 06/05/2012 14:33:46 [id number] Batsheva Siegel, PT Physical Therapy, [address] [place] [address] 06/13/2012 14:56:23 06/14/2012 07:45:11 [id number] Jennifer Altamirano , [facility], OFFICE [address] [place] [address] 12/18/2012 14:52:28 12/18/2012 15:52:34 [id number] Colten Hung MD , [facility], OFFICE [address] [place] [address] 03/20/2013 16:26:44 03/20/2013 17:18:16 [id number] Colten Hung MD , [facility], OFFICE [address] [place] [address] 6 03/21/2013 13:50:25 03/21/2013 14:23:10 [id number] Narinder Mahajan MD , [facility], OFFICE [address] [place] [address] 03/22/2013 10:21:46 03/26/2013 09:26:50 [id number] TAWANDA Foote , [facility], OFFICE [address] [facility] [place] [address] 03/27/2013 16:22:41 03/27/2013 17:45:23 [id number] Colten Hugn MD , [facility], OFFICE [address] [facility] [place] [address] 10/29/2014 11:07:42 10/29/2014 12:22:56 [id number] Colten Hung MD , [facility], OFFICE [address] [facility] [place] [address] 11/11/2014 14:26:39 11/11/2014 15:03:14 [id number] MD LEIGH Puentes, [facility], OFFICE [address] [facility] [place] [address] 11/24/2014 16:14:05 11/24/2014 17:07:34 [id number] MD LEIGH Puentes, [facility], OFFICE [address] [facility] [place] [address] 12/18/2014 14:28:37 12/18/2014 16:54:05 [id number] Lara moore Ph.D. , [facility] [address] [facility] [place] [address] 12/18/2014 15:27:19 12/18/2014 16:27:46 [id number] MD LEIGH Puentes, [facility], OFFICE [address] [facility] [place] [address] 12/31/2014 10:06:52 01/01/2015 11:50:16 [id number] FLORINDA Fernandes, [facility], OFFICE [address] [facility] [place] [address] 01/05/2015 17:02:32 01/06/2015 17:03:47 [id number] FLORINDA Fernandes, [facility], OFFICE [address] [facility] [place] [address] 01/06/2015 10:50:42 01/06/2015 13:08:05 [id number] TAWANDA Foote, [facility], OFFICE [address] [facility] [place] [address] 01/13/2015 11:04:23 01/13/2015 11:54:20 [id number] Colten Hung MD FP, [facility], OFFICE [address] [facility] [place] [address] 01/26/2015 14:29:58 01/26/2015 15:17:39 [id number] Colten Hung MD FP, C, OFFICE [address] [facility] [place] [address] 02/09/2015 14:21:18 02/09/2015 15:28:18 [id number] Colten Hung MD FP, C, OFFICE [address] [facility] [place] [address] 02/24/2015 13:22:14 02/24/2015 17:17:22 [id number] MD LEIGH Reyes, C, OFFICE [address] [facility] [place] [address] 03/25/2015 16:19:27 03/25/2015 19:11:52 [id number] MD LEIGH Puentes, C, OFFICE [address] [facility] [place] [address] 04/16/2015 15:42:50 04/22/2015 08:41:57 [id number] Colten Hung MD FP, [facility], OFFICE [address] [facility] [place] [address] 05/12/2015 11:30:32 05/12/2015 12:05:39 [id number] MD LEIGH Puentes, [facility], OFFICE [address] [facility] [place] [address] 06/16/2015 13:33:03 06/16/2015 16:40:52 [id number] MD LEIGH Puentes, C, OFFICE [address] [facility] [place] [address] 6 07/21/2015 13:22:54 07/21/2015 15:21:51 [id number] MD LEIGH Puentes, C, OFFICE [address] [facility] [place] [address] 08/17/2015 15:21:49 08/17/2015 16:57:43 [id number] Colten Hung MD , [facility], OFFICE [address] [facility] [place] [address] 09/14/2015 10:52:50 09/14/2015 15:52:39 [id number] Stefany Murillo NP , [facility], OFFICE [address] [facility] [place] [address] 09/28/2015 11:37:53 09/28/2015 15:56:38 [id number] Marysol Lucio MD , [facility], OFFICE [address] [facility] [place] [address] 01/06/2016 10:07:49 01/06/2016 12:13:45 [id number] Colten Hung MD , [facility], OFFICE [address] [facility] [place] [address] 01/06/2016 16:53:06 01/07/2016 10:25:33 [id number] Marysol Lucio MD , [facility], OFFICE [address] [facility] [place] [address] 01/07/2016 10:57:20 01/07/2016 12:24:02 [id number] Narinder Mahajan MD , [facility], OFFICE [address] [place] [address] 01/08/2016 09:19:51 01/08/2016 09:58:20 [id number] Marysol Lucio MD , [facility], OFFICE [address] [facility] [place] [address] 01/10/2016 10:13:21 01/10/2016 11:23:01 [id number] Marysol Lucio MD , [facility], OFFICE [address] [facility] [place] [address] 01/13/2016 10:32:46 01/13/2016 12:46:04 [id number] Marysol Lucio MD , [facility], OFFICE [address] [facility] [place] [address] 01/19/2016 13:18:58 01/19/2016 14:17:20 [id number] Stefany Murillo NP FP, [facility], OFFICE [address] [facility] [place] [address] 04/05/2016 13:57:40 04/05/2016 16:42:51 [id number] TAWANDA Foote FP, [facility], OFFICE [address] [facility] [place] [address] 07/18/2016 13:49:22 07/18/2016 16:30:15 [id number] MD LEIGH Puentes, [facility], OFFICE [address] [facility] [place] [address] 09/05/2016 13:25:34 09/06/2016 10:35:36 [id number] Jennifer Altamirano , [facility], OFFICE [address] [facility] [place] [address] 01/23/2017 09:23:30 01/23/2017 11:00:06 [id number] Jennifer Altamirano , [facility], OFFICE [address] [facility] [place] [address] 03/27/2017 11:46:43 03/27/2017 15:19:22 [id number] Hitesh Burleson MD , [facility], OFFICE [address] [facility] [place] [address] 09/04/2017 09:04:01 09/04/2017 10:10:35 [id number] Roby Stokes MD , [facility], [address] [place] [address] 06/13/2019 14:23:53 06/13/2019 16:34:52 [id number] Jose Bryant MD , [facility], OFF[address] [place] [address] 06/16/2019 13:39:25 06/16/2019 17:41:57 [id number] MD LEIGH Etienne, [facility], OFFICE [address] [facility] [place] [address] 12/08/2019 15:36:43 12/09/2019 13:29:44 [id number] MD LEIGH Puentes, [facility], OFFICE [address] [facility] [place] [address] 05/04/2020 16:09:42 05/06/2020 10:30:29 [id number] Colten Hung MD , [facility], OFFICE [address] [place] [address] 08/17/2020 07:56:57 08/18/2020 15:07:45 [id number] Natalie Longoria D.O. , [facility], OFFICE [address] [place] [address] 09/19/2021 16:53:53 10/03/2021 12:01:39 [id number] Mariah Duran MD , [facility], OFF[address] [place] [address] 05/24/2022 14:09:37 05/25/2022 12:36:44 [id number] Rick Peña MD , [facility], OFFICE [address] [place] [address] 02/22/2023 10:53:08 02/22/2023 13:20:06 [id number] Hitesh Burleson MD , [facility], OFF[address] [place] [address] 06/16/2023 12:01:58 06/16/2023 12:32:37 [id number] Raymundo Wright MD , [facility], OFFICE [address] [place] [address] 06/21/2023 16:24:10 06/22/2023 11:15:42 [id number] Allie Morgan MD , [facility], OFFICE [address] [place] [address] 1 08/29/2024 10:19:26 08/29/2024 13:16:12 [id number] Shahriar Dominique MD Endoscopy , [facility] [address] [place] [address] [place] [address] 09/15/2024 11:57:30 09/15/2024 14:24:08 Health Concerns Section Related Observation LastModified by Organization Detai ls LastModified Time None Recorded Concern Status LastModified by Organization Details LastModified Time None Recorded Advance Directives Directive None Recorded Payers Insurance Date Sequence Insurance Name Policy Number Policy Jackman Covered Member ID Jackman Member ID Guarantor Name 09/20/2021 1 [place] [employer] Liza A Larochelle [id number] Liza A Larochelle 01/11/2023 2 [place] [facility] G[facility]MENT [facility] Liza A Larochelle [id number] Liza A Larochelle 06/16/2023 1 [place] [facility] Liza A Larochelle [id number] Liza A Larochelle 09/20/2021 2 MEDICARE A-[place]: [facility] Liza A Larochelle [id number] Liza A Larochelle 07/27/2022 1 [place] [facility] Liza A Larochelle [id number] Liza A Larochelle 10/27/2014 1 *SELF PAY* Me magaly A Larochelle 09/20/2021 [employer] Liza A Larochelle Liza A Larochelle 09/20/2021 2 [place] [facility] Liza A Larochelle [id number] Liza A Larochelle 09/20/2021 2 [place] [facility] Liza A Larochelle [id number] Liza A Larochelle 09/20/2021 1 [facility] [employer] [facility] PLAN (MEDICAID HMO) Liza A Larochelle [id number] Liza A Larochelle 09/20/2021 1 [place] [facility] [id number] Liza A Larochelle [id number] Liza A Larochelle 09/20/2021 [employer] Liza A Larochelle Liza A Larochelle 09/20/2021 1 [place] [facility] PLAN Liza A Larochelle [id number] Liza A Larochelle 06/30/2004 1 *SELF PAY* Me magaly A Larochelle 09/22/2024 1 [facility] [id number] Liza A Larochelle [id number] Liza A Larochelle 10/17/2013 PAYMENT PLAN Liza A Larochelle 09/20/2021 1 [facility] HEALTH NET PLAN (MEDICAID HMO) [id number] Liza A Larochelle [id number] Liza A Larochelle 12/18/2012 1 *SELF PAY* Me magaly A Larochelle 09/20/2021 1 MEDICARE B-[place]: [facility] Liza Hadley [id number] Liza Hadley 10/28/2014 1 *SELF PAY* Me magaly Hadley OBGyn Episode No OBEpisode recorded.
--- OUTSIDE RECORDS SUMMARY | 2024-12-22 12:22 | XMS_ITS | Clinical Summary ---
Author Organization [facility] Address [address] [facility] [address] [place] [address] Phone Care Team Providers Care Chemical Processor Name Role Phone Michelle Carty Primary Care Provider [email or web address] Allergies Active Allergy Reactions Criticality Noted Date Comments Iodinated Contrast Media Unknown 05/20/1999 Allergy entered as IV CONTRAST DYES Mushroom Unknown 09/10/2018 Penicillins Unknown 05/20/1999 Medications docusate sodium (COLACE) 100 MG capsule Take 1 capsule (100 mg total) by mouth 2 (two) times a day. 30 capsule 09/14/19 19 Active Additional Information Patient not taking.Reported on 10/02/2018 senna (SENOKOT) 8.6 mg tablet Take 2 tablets by mouth nightly at bedtime. 30 tablet 09/14/19 19 Active Additional Information Patient not taking.Reported on 05/07/2019 albuterol 90 mcg/actuation inhaler Inhale 2 puffs into the lungs every 6 (six) hours as needed. 06/13/19 20 Active ibuprofen (ADVIL,MOTRIN) 200 MG tablet Take 400 mg by mouth every 6 (six) hours as needed for pain (specific location in comments). Active acetaminophen (TYLENOL) 325 mg tablet Take 650 mg by mouth every 6 (six) hours as needed for mild pain. Active azithromycin (ZITHROMAX) 500 MG tablet Take one tablet daily x 3 days 3 tablet 09/02/19 25 Active dicyclomine (BENTYL) 10 MG capsule Take 1 capsule (10 mg total) by mouth 4 (four) times a day before meals and nightly for 5 days. 20 capsule 09/01/19 25 Active morphine (MSIR) 15 MG tablet Take 1 tablet (15 mg total) by mouth every 4 (four) hours as needed for pain (specific location in comments). Partial fill ok 5 tablet 09/01/19 25 Active ondansetron (ZOFRAN-ODT) 4 MG disintegrating tablet Take 1 tablet (4 mg total) by mouth every 8 (eight) hours as needed for nausea. 20 tablet 09/01/19 25 Active Active Problems Problem Noted Date Diagnosed Date Lumbar radiculopathy 10/10/2018 Sacroiliac joint dysfunction of left side 2018 Myofascial muscle pain 10/24/2017 Sacroiliitis 05/02/2017 Immunizations Immunization Administration Dates Next Due COVID-19 (Pre-03/26) Discovery Machine Vaccine, mRNA, PF ,09/19/2020 Family History Medical History Relation Comments Diabetes Maternal Grandfather Stroke Maternal Grandfather Relation Status Comments Maternal Grandfather Social History Tobacco Use Types Packs/Day Years Used Date Smoking Tobacco: Former Cigarettes 0.5 10 Smokeless Tobacco: Never Tobacco Cessation:Counseling Given: Not Answered Alcohol Use Standard Drinks/Week Comments Yes 0 (1 standard drink = 0.6 oz pur e alcohol) 1-2 drinks per week Education Answer Date Recorded Are you interested in more education? Not on vanessa e 09/28/2022 Are you concerned about learning? Not on file 09/28/2022 No 09/28/2022 No 09/28/2022 Digital Access Answer Date Recorded No 10/30/2022 No 10/30/2022 Reliable internet access at home? Not on file 10/30/2022 Device with a working camera? Not on file Intimate Partner Violence Answer Date R ecorded Are you denied basic needs s uch as food, clothing, or medical care? No 08/31/2024 In the past 12 months have y ou been in a relationship with a person who hurts, threatens, or tries to control you? No 08/31/2024 Are you denied basic needs s uch as food, clothing, or medical care? No 08/31/2024 In the past 12 months have y ou been in a relationship with a person who hurts, threatens, or tries to control you? No 08/31/2024 Comments No Sex and Gender Information Value Date Recorded Sex Assigned at Female 08/31/2024 11:50 AM EDT Legal Sex Female 7:57 PM EST Gender Identity Female 08/31/2024 11:50 AM EDT Sexual Orientation Not on file Last Filed Vital Signs Vital Sign Reading Time Taken Comments Blood Pressure 131/87 08/31/2024 6:37 PM EDT Pulse 71 08/31/2024 6:37 PM EDT Temperature 36.7 C (98.1 F) 08/31/2024 6:37 PM EDT Respiratory Rate 16 08/31/2024 6:37 PM EDT Oxygen Saturation 98% 08/31/2024 6:37 PM EDT Inhaled Oxygen Concentration - - Weight 66.7 kg (147 lb) 08/31/2024 11:48 AM EDT Height 165.1 cm (5' 5 ) 08/31/2024 11:48 AM EDT Body Mass Index 24.46 08/31/2024 11:48 AM EDT Plan of Treatment Health Maintenance Due Date Last Done Comments Adult Td,Tdap Booster 1975 LIPID PANEL 1977 DEPRESSION SCREENING 1989 SMOKING Hx and SMOKELESS TOBACCO SCREENING 1990 HEPATITIS C SCREENING 12/15/1995 HIV ONE-TIME SCREENING (18-6 5 YEARS) 12/15/1995 MAMMOGRAM 2017 COLOGUARD 2022 COLONOSCOPY 2022 COLORECTAL CANCER SCREENING 2022 FIT TEST 2022 FOBT 2022 SIGMOIDOSCOPY 2022 VIRTUAL COLONOSCOPY 2022 COVID-19 VACCINE (3 - 2023-2 5 season) 2024 10/10/2020, 09/19/2020 PAP SMEAR 09/20/2024 09/20/2021 PNEUMOCOCCAL VACCINES (0-49 years) Aged Out 12/05/2015 No longer eligible b ased on patient's age to complete this topic HEPATITIS A VACCINES Aged Out No long er eligible based on patient's age to complete this topic HIB VACCINES Aged Out No longer eligi ble based on patient's age to complete this topic MENINGOCOCCAL VACCINES (ACWY) Aged Out No longer eligible based on patient's age to complete this topic MENINGOCOCCAL VACCINES (B) Aged Out N o longer eligible based on patient's age to complete this topic Medical Devices Implanted Type Area Ticket Clerk Device Identifier Shelf Expiration Date Model / Serial / Lot Pete,Ysabel Screws-09/10/2000 Implanted:09/10 (Quantity not on file) Implant Ifuse 3d 7x55mm - [id number] Implanted:Qty: 1 on 09/10/2018 by Hodan Ruiz MD, PhD at [facility] Left: Sacrum S [employer] 04/08/2023 [id number]-90 / [id number]-90 / [id number] Implant Ifuse 3d 7x45mm - [id number] Implanted:Qty: 1 on 09/10/2018 by Hodan Ruiz MD, PhD at [facility] Left: Sacrum S [employer] 04/08/2023 [id number]-90 / [id number]-90 / [id number] Implant Ifuse 3d 7x40mm - [id number] Implanted:Qty: 1 on 09/10/2018 by Hodan Ruiz MD, PhD at [facility] Left: Sacrum S [employer] 04/08/2023 [id number]-90 / [id number] / [id number] Procedures Procedure Name Priority Date/Time Associated Diagnosis Comments PAP TEST Routine 09/20/2021 12:00 AM EDT from Last 3 Months or Most Recently Relevant to Health Maintenance Results * Pap Smear (09/20/2021 12:00 AM EDT) 09/20/2021 09/21/2021 9:3 2 AM EDT Narrative SEE NARRATIVE - 09/26/2021 4:07 PM EDT [address] [address] Continuous Dryout Operator: Faye Esquivel MD MACHINE CERAMIC COATER Cytology Report FINAL DIAGNOSIS A. PAP SMEAR (SUREPATH) CE: SPECIMEN ADEQUACY: Satisfactory for evaluation; transformation zone present. INTERPRETATION: NEGATIVE FOR INTRAEPITHELIAL LESION OR MALIGNANCY. Electronically Signed Out By: DHARA Cabrales(ASCP) The Pap test is a screening test primarily for squamous cancers and precursors and has associated false-negative and false-positive results. New technologies such as liquid-based preparations may decrease but will not eliminate all false-negative results. Regular sampling and follow-up of unexplained clinical signs and symptoms are recommended to minimize false negative results. PROCEDURES/ADDENDA HPV Testing (Requested) Ordered Date: 09/21/2021 A. PAP SMEAR (SUREPATH) CE: Human Papilloma Virus Test Negative for high-risk human papillomavirus types 16, 18, 45 and the Other high risk probe set (Includes 31, 33, 35, 39, 51, 52, 56, 58, 59, 66, 68) by [employer] HR-HPV analysis. Clinical correlation is advised. This HPV test was performed at [facility], [address] [place] [address]. This test has been FDA approved for SurePath cervical cytology specimens. The accuracy and precision of this test for all other specimen sources has been verified in the Cytopathology Laboratory of the [facility] and has not been cleared or approved by the U.S. Food and Drug Administration. Clinical correlation is advised. CLINICAL HISTORY Date of Last Menstrual Period: 09-05-2021 Other Clinical Conditions: Screening Pap SPECIMEN SOURCE A: PAP SMEAR (SUREPATH) CE Patient Name: LIZA MCLEAN : 1975 (Age: 45) Sex: F [facility] Location: [facility] Date of Collection: 09/20/2021 Date of Reported: 09/26/2021 16:07 Results to: September Ada Springer September Ada Moser NP CYTOLOGY ORDERAB LES Final Result SEE NARRATIVE from Last 3 Months or Most Recently Relevant to Health Maintenance Insurance MEDICARE A [address] [place], [place] [id number] MEDICARE A [facility] MEDICARE A MEDICARE A [facility]ICARE A [facility] A O MEDICARE A MEDICARE A [facility] H[facility] Advance Directives For more information, please contact: [phone] (9AM - 5PM [facility], Sunday-Sunday) * Full Code (Presumed) (Latest Code Status on File) Date Activated Date Inactivated Comments 09/10/2018 3:37 PM 09/13/2018 5:01 PM Care Teams Chemical Processor Relationship Specialty Start Date End Date Michelle Carty [address] [place] [address] PCP - General 08/31/24 Additional Source Comments The information contained in this document represents components of the legal health record. It is not the complete legal health record.[facility]
== END 2024-12-22 11:35 | disposition home or self-care (01) ==
LOC: HO.HCC 11:12
PROVIDERS: PCP Nurse Practitioner Family; Visit Provider Clinical Nurse Specialist Psychiatric/Mental Health
DX: F11.21 Opioid dependence, in remission (principal); F33.1 Major depressive disorder, recurrent, moderate; F41.1 Generalized anxiety disorder
CPT/HCPCS: 99214

== ENCOUNTER 2025-02-19 12:49 | Outpatient (AMB) | payer OTHER, SELFPAY ==
[2025-02-19 13:01] VITALS: BP 122/72; PULSE 80; O2SAT 98; BMI 27.1
--- NOTE | 2025-02-19 13:01 | MHC.OFFVIS ---
Vital Signs 02/19/25 13:01 Height 5 ft 5 in Weight 163 lb BMI 27.1 BP 122/72 Pulse 80 Pulse Oximetry (%) 98 Intake Visit Reasons: MAT visit Allergies Iodinated Contrast Media (CONTRAST, IV) Allergy (Severe, Verified 02/19/25 13:02) ANAPHALAXIS Penicillins (PENICILLINS) Allergy (Intermediate, Verified 02/19/25 13:02) HIVES mushroom Allergy (Mild, Verified 02/19/25 13:02) Rash divalproex sodium (From DEPAKOTE) Allergy (Unknown, Verified 02/19/25 13:02) SWELLING HPI Comments Details: A 49 year old female with a history CM in sustained remission with buprenorphine-naloxone 2-0.5 mg daily. Denies use of opioids, alcohol or other substances. Unable to connect mental health services at present time and therefore t/w will continue to refill citalopram, buspirone, and lamotrigine. 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 [facility] Medical History Opioid use disorder Surgical History History of cholecystectomy History of appendectomy History of bunionectomy Previous back surgery Physical Exam Vital Signs: Last Vital Signs Pulse 80 02/19/25 13:01 BP 122/72 02/19/25 13:01 Pulse Ox 98 02/19/25 13:01 BMI result Body Mass Index 27.1 Assessment & Plan Assessment & Plan (1) Opioid use disorder, moderate, in sustained remission: Code(s): F11.21 - Opioid dependence, in remission Category: Medical Plan The plan of care is to continue with buprenorphine-naloxone 2-0.5 mg daily, citalopram 40 mg daily, buspirone 15 mg TID, and lamotrigine 50 mg daily. Follow-up in 2 months or sooner if needed. Medications: Refilled buspirone 15 mg PO TID 90 tabs 1RF citalopram (Celexa) 40 mg PO DAILY 90 tabs 0RF buprenorphine-naloxone 2-0.5 mg (Suboxone) 1 film sublingual DAILY 30 ea 1RF lamotrigine 50 mg (2 x 25 mg) PO DAILY 60 tabs 1RF 30 days Patient Instructions: - Continue with buprenorphine-naloxone, citalopram, buspirone, and lamotrigine as prescribed. - Follow-up in 2 months or sooner if needed. - Call with questions, concerns, or to report side effects/new onset of symptoms to [facility]. - The patient verbalized understanding and agreed with plan of care. Coding Level of Care Code Est Pt Level 3 (69799) Diagnoses Opioid use disorder, moderate, in sustained remission F11.21
--- OUTSIDE RECORDS SUMMARY | 2025-02-19 14:53 | XMS_ITS | Encounter Summary ---
Author Organization [facility] Address [address] [facility] [address] [place] [address] Phone Care Team Providers Care Nuclear Weapons Mechanical Specialist Name Role Phone Colten Hung MD Primary Care Provider [phone]- [phone] Michelle Carty Primary Care Provider [email or web address] Encounter Details Date Type Department Care Team (Late st Contact Info) Description 10/01/2018 Ancillary Orders [facility],Outside Imaging [address] [place] [address] [id number] System, Provider [place] In, [place] [address] Social History Tobacco Use Types Packs/Day Years Used Date Smoking Tobacco: Every Day Cigarettes 0.5 10 Smokeless Tobacco: Never Comments No Sex and Gender Information Value Date Recorded Sex Assigned at Female 08/31/2024 11:50 AM EDT Legal Sex Female 7:57 PM EST Gender Identity Female 08/31/2024 11:50 AM EDT Sexual Orientation Not on file documented as of this encounter Plan of Treatment Not on file documented as of this encounter Visit Diagnoses Not on filedocumented in this encounter Care Teams Nuclear Weapons Mechanical Specialist Relationship Specialty Start Date End Date Colten Hung MD [email or web address] PCP - General 03/22/17 08/30/24 Michelle Carty [address] [place] [address] PCP - General 08/31/24 documented as of this encounter Additional Source Comments The information contained in this document represents components of the legal health record. It is not the complete legal health record.[facility]
--- OUTSIDE RECORDS SUMMARY | 2025-02-19 14:53 | XMS_ITS | Encounter Summary ---
Author Organization [facility] Address [address] [facility] [address] [place] [phone] Phone Care Team Providers Care Vice President Compliance Name Role Phone Michelle Carty Primary Care Provider [email or web address] Encounter Details Date Type Department Care Team (Late st Contact Info) Description 08/31/2024 Procedure Pass [facility], Ct Scan - [address] [address] Social History Tobacco Use Types Packs/Day Years Used Date Smoking Tobacco: Former Cigarettes 0.5 10 Smokeless Tobacco: Never Alcohol Use Standard Drinks/Week Comments Yes 0 [...] on file documented as of this encounter Functional Status * Calculated C-SSRS Risk Score (Lifetime/Recent) Answer Date of Assessment Author No Risk Indicated 08/31/2024 11:50 AM EDT Renetta Sarkar RN * [place] Suicide Severity Rating Scale (Screener/Recent Self-Report) Question Answer Date of Assessment Author 1. Wish to be (Past 1 Month) No 08/31/2024 11:50 AM EDT Cedric Huynh cie, RN 2. Non-Specific Active Suicidal Thoughts (Past 1 Month) No 08/31/2024 11:50 AM EDT Cedric Huynh cie, RN 6. Suicidal Behavior (Lifetime) No 08/31/2024 11:50 AM EDT Cedric Huynh cie, RN documented as of this encounter Plan of Treatment Not on file documented as of this encounter Visit Diagnoses Not on filedocumented in this encounter Care Teams Vice President Compliance Relationship Specialty Start Date End Date Michelle Carty [address] [place] [address] PCP - General 08/31/24 documented as of this encounter Additional Source Comments The information contained in this document represents components of the legal health record. It is not the complete legal health record.[facility]
--- OUTSIDE RECORDS SUMMARY | 2025-02-19 14:53 | XMS_ITS | Encounter Summary ---
Author Organization [facility] Address [address] [place] [address] Phone Care Team Providers Care Back Panel Padder Name Role Phone Colten Hung MD Primary Care Provider [phone] Michelle Carty Primary Care Provider Encounter Details Date Type Department Care Team (Late st Contact Info) Description 09/16/2018 Procedure Pass [facility], [address] [address] Social History Tobacco Use Types Packs/Day Years [...] on filedocumented in this encounter Care Teams Back Panel Padder Relationship Specialty Start Date End Date Colten Hung MD PCP - General 03/22/17 08/30/24 Michelle Carty [address] [place] [address] PCP - General 08/31/24 documented as of this encounter Additional Source Comments The information contained in this document represents components of the legal health record. It is not the complete legal health record.[facility]
--- OUTSIDE RECORDS SUMMARY | 2025-02-19 14:53 | XMS_ITS | Encounter Summary ---
Author Organization [facility] Address [address] [facility] [address] [place] [address] Phone Care Team Providers Care Special Effects Artist Name Role Phone Michelle Carty Primary Care Provider [email or web address] Encounter Details Date Type Department Care Team (Late st Contact Info) Description 01/08/2025 Procedure Pass [facility], Ct Scan - [facility] [address] [place] [address] Social History Tobacco Use Types Packs/Day Years [...] on filedocumented in this encounter Care Teams Special Effects Artist Relationship Specialty Start Date End Date Michelle Carty [address] [place] [address] PCP - General 08/31/24 documented as of this encounter Additional Source Comments The information contained in this document represents components of the legal health record. It is not the complete legal health record.[facility]
--- OUTSIDE RECORDS SUMMARY | 2025-02-19 14:53 | XMS_ITS | Encounter Summary ---
Author Organization [facility] Address [address] [facility] [address] [place] [address] Phone Care Team Providers Care Scagliola Mechanic Name Role Phone Michelle Carty Primary Care Provider [email or web address] Encounter Details Date Type Department Care Team (Latest Contact Info) Description 01/07/2025 Transcribe Orders [facility] [address] [address] Jenny Richardson PA [address] [place] [address] Gastroesophageal reflux disease without esophagitis (Primary Dx) Social History Tobacco Use Types Packs/Day Years [...] on file documented as of this encounter Results * Lipase (01/07/2025 2:06 PM EDT) LIPASE 28 16 - 63 U/L [facility] Blood 01/07/2025 2:06 PM EDT 01/07/2025 2:09 PM EDT us Jenny [facility] BLOOD ORDERABLES Final Result Performing Organization Address City/State/[facility] Co de Phone Number [facility] [address] [place] [address] * (ABNORMAL) Comprehensive metabolic panel (01/07/2025 2:06 PM EDT) SODIUM 141 133 - 146 mmol/L [facility] POTASSIUM 4.4 3.3 - 5.1 mmol/L [facility] CHLORIDE 100 96 - 108 mmol/L [facility] CO2 25 21 - 35 mmol/L [facility] BUN 20(H) 6 - 19 mg/dL [facility] CREATININE 1.20 0.5 - 1.5 mg/dL [facility] GLUCOSE 83 70 - 99 mg/dL [facility] ALBUMIN 4.8 3.9 - 4.8 g/dL [facility] TOTAL PROTEIN 7.5 6.5 - 8.0 g/dL [facility] CALCIUM 9.9 8.4 - 10.3 mg/dL [facility] ALKALINE PHOSPHATASE 81 39 - 117 U/L [facility] TOTAL BILIRUBIN 0.5 0.0 - 1.2 mg/dL [facility] AST 20 0 - 37 U/L [facility] ALT 10 0 - 40 U/L [facility] GLOBULIN 2.7 1 - 4.8 g/dL [facility] EGFR 56(L) >59 mL/min/1.7 3m2 [facility] Comment:Estimated glomerular filtration rate calculated using the CKD-EPI refit equation. ANION GAP 20 10 - 20 mmol/L [facility] Blood 01/07/2025 2:06 PM EDT 01/07/2025 2:09 PM EDT us Jenny [facility] BLOOD ORDERABLES Final Result Performing Organization Address City/State/[facility] Co de Phone Number [facility] [address] [place] [address] * CBC and differential (01/07/2025 2:06 PM EDT) WBC 6.25 4.00 - 11.00 K/uL [facility] RBC 4.56 4.00 - 5.20 M/uL [facility] HGB 14.0 12.0 - 16.0 g/dL [facility] HCT 40.8 36.0 - 46.0 % [facility] PLT 200 150 - 450 K/uL [facility] MCV 89.5 80.0 - 100.0 fL [facility] MCH 30.7 27.0 - 31.0 pg [facility] MCHC 34.3 32.0 - 36.0 g/dL [facility] RDW 12.3 11.5 - 14.5 % [facility] MPV 11.6 8.4 - 12.0 fL [facility] NRBC 0.00 0.00 /100 WBCs [facility] ABSOLUTE NRBC 0.00 0.00 K/uL [facility] DIFF METHOD Auto [facility] NEUTS 58.6 48.0 - 76.0 % [facility] LYMPHS 32.6 18.0 - 41.0 % [facility] MONOS 7.7 4.0 - 11.0 % [facility] EOS 0.5 0.0 - 5.0 % [facility] BASOS 0.3 0.0 - 1.5 % [facility] Granulocytes, immature (%) 0.3 0.0 - 0.9 % [facility] ABSOLUTE NEUTS 3.66 1.92 - 7.60 K/uL [facility] ABSOLUTE LYMPHS 2.04 0.72 - 4.10 K/uL [facility] ABSOLUTE MONOS 0.48 0.16 - 1.10 K/uL [facility] ABSOLUTE EOS 0.03 0.00 - 0.50 K/uL [facility] ABSOLUTE BASOS 0.02 0.00 - 0.15 K/uL [facility] Granulocytes, immature 0.02 0.00 - 0.09 K/uL [facility] Blood 01/07/2025 2:06 PM EDT 01/07/2025 2:09 PM EDT us Jenny [facility] BLOOD ORDERABLES Final Result [address] [address] documented in this encounter Visit Diagnoses Diagnosis Gastroesophageal reflux disease without esophagitis- Primary Esophageal reflux documented in this encounter Care Teams Scagliola Mechanic Relationship Specialty Start Date End Date Michelle Carty [address] [place] [address] [email or web address] PCP - General 08/31/24 documented as of this encounter Additional Source Comments The information contained in this document represents components of the legal health record. It is not the complete legal health record.[facility]
--- OUTSIDE RECORDS SUMMARY | 2025-02-19 14:53 | XMS_ITS | Encounter Summary ---
Author Organization [facility] Address [address] [place] [address] Phone Care Team Providers Care Scenic Artist Name Role Phone Coltne Hung MD Primary Care Provider [phone]- [phone] Michelle Carty Primary Care Provider [email or web address] Encounter Details Date Type Department Care Team (Late st Contact Info) Description 09/10/2018 Procedure Pass [facility] 1st floor [address] [place] [address] Social History Tobacco Use Types Packs/Day Years [...] on filedocumented in this encounter Care Teams Scenic Artist Relationship Specialty Start Date End Date Colten Hung MD PCP - General 03/22/17 08/30/24 Michelle Carty [address] [place] [address] PCP - General 08/31/24 documented as of this encounter Additional Source Comments The information contained in this document represents components of the legal health record. It is not the complete legal health record.[facility]
--- OUTSIDE RECORDS SUMMARY | 2025-02-19 14:53 | XMS_ITS | Encounter Summary ---
Author Organization [facility] Address [address] [place] [address] [place] [address] Phone Care Team Providers Care Telegraph Service Clerk Name Role Phone Michelle Carty Primary Care Provider [email or web address] Reason for Referral * MRI/CAT Scan - Closed Specialty Diagnoses / Procedures Referred By Evens schultz Referred To Contact Radiology Diagnoses Generalized abdominal pain Epigastric abdominal pain Procedures CT Abdomen/Pelvis CHG CT SCAN,ABDOMENT AND PELVIS,W CONTRAST CHG CT SCAN,ABDOMENT AND PELVIS,W/O CONTRAST Jenny Richardson PA [address] [place] [address] Phone: tel: fax: Referral ID Status Reason Start Date Expiration Date Visits Re quested Visits Authorized [id number] Closed 01/08/2025 03/09/2025 1 1 Encounter Details Date Type Department Care Team (Latest Contact Info) Description 01/08/2025 Transcribe Orders Virtual Department [address] [place] [address] Jenny Richardson PA [address] [place] [phone] Generalized abdominal pain (Primary Dx); Epigastric abdominal pain Social History Tobacco Use Types Packs/Day Years [...] documented as of this encounter Results * CT ABDOMEN/PELVIS WITHOUT CONTRAST (01/21/2025 4:00 PM EDT) Anatomical Region Laterality Modality Abdomen, Pelvis Computed Tomogra phy 01/26/2025 6:37 PM EDT Impressions 01/26/2025 6:47 PM EDT Suboptimal evaluation of parenchymal organs and bowel in the absence of intravenous contrast. However, no acute findings to account for abdominal pain. Narrative 01/26/2025 6:[address] ABDOMEN/PELVIS WITHOUT CONTRAST Referring clinician's provided indication for this examination in Epic: Outside Radiology Order; abdomen pain TECHNIQUE: Multidetector-row CT of the abdomen and pelvis was performed without intravenous contrast using tailored dose modulation techniques. Images were reconstructed in the axial, coronal, and sagittal planes. COMPARISON: ABSENCE OF INTRAVENOUS CONTRAST DECREASES SENSITIVITY FOR DETECTION OF FOCAL LESIONS AND VASCULAR PATHOLOGY. FINDINGS: Lower Chest: No consolidation or effusions. Scattered less than 3 mm calcified nodules unchanged compatible with granulomata. Liver: No gross focal lesion. Suboptimally evaluated in the absence of intravenous contrast. Biliary: No biliary ductal dilatation. Gallbladder is surgically absent. Spleen: No splenomegaly. Unchanged punctate calcifications compatible with granulomata. Pancreas: No ductal dilatation Adrenal Glands: No nodules. Kidneys/Ureters: No hydronephrosis or stones. Bowel: No distention. Appendix is surgically absent. Peritoneum/Retroperitoneum: No free air or fluid Lymph Nodes: No lymphadenopathy. Pelvic Organs/Bladder: Bladder is collapsed. Uterus is of normal size. Vessels: No abdominal aortic aneurysm. Bones/Soft Tissues: No destructive osseous lesions. Procedure Note Deloris Deal MD, PhD - 01/26/2025 CT ABDOMEN/PELVIS WITHOUT CONTRAST Referring clinician's provided indication for this examination in Epic:Outside Radiology Order; abdomen pain TECHNIQUE: Multidetector-row CT of the abdomen and pelvis was performedwithout intravenous contrast using tailored dose modulation techniques.Images were reconstructed in the axial, coronal, and sagittal planes. COMPARISON: ABSENCE OF INTRAVENOUS CONTRAST DECREASES SENSITIVITY FOR DETECTION OFFOCAL LESIONS AND VASCULAR PATHOLOGY. FINDINGS: Lower Chest: No consolidation or effusions. Scattered less than 3 mmcalcified nodules unchanged compatible with granulomata. Liver: No gross focal lesion. Suboptimally evaluated in the absence ofintravenous contrast. Biliary: No biliary ductal dilatation. Gallbladder is surgically absent. Spleen: No splenomegaly. Unchanged punctate calcifications compatible withgranulomata. Pancreas: No ductal dilatation Adrenal Glands: No nodules. Kidneys/Ureters: No hydronephrosis or stones. Bowel: No distention. Appendix is surgically absent. Peritoneum/Retroperitoneum: No free air or fluid Lymph Nodes: No lymphadenopathy. Pelvic Organs/Bladder: Bladder is collapsed. Uterus is of normal size. Vessels: No abdominal aortic aneurysm. Bones/Soft Tissues: No destructive osseous lesions. IMPRESSION: Suboptimal evaluation of parenchymal organs and bowel in the absence ofintravenous contrast. However, no acute findings to account for abdominalpain. us Jenny ROGERS IMG CT ABD/PELVIS Final Res ult documented in this encounter Visit Diagnoses Diagnosis Generalized abdominal pain- Primary Abdominal pain, generalized Epigastric abdominal pain Abdominal pain, epigastric Generalized abdominal pain Abdominal pain, generalized Epigastric abdominal pain Abdominal pain, epigastric documented in this encounter Care Teams Telegraph Service Clerk Relationship Specialty Start Date End Date Michelle Carty [address] [place] [address] [email or web address] PCP - General 08/31/24 documented as of this encounter Additional Source Comments The information contained in this document represents components of the legal health record. It is not the complete legal health record.[facility]
--- OUTSIDE RECORDS SUMMARY | 2025-02-19 14:53 | XMS_ITS | Clinical Summary ---
Author Organization [facility] Address [address] [facility] [address] [place] [address] Phone Care Team Providers Care Afterschool Name Role Phone Michelle Carty Primary Care Provider [email or web address] Allergies Active Allergy Reactions Criticality Noted Date Comments Iodinated Contrast Media Anaphylaxis High 05/20/1999 Allergy entered as IV CONTRAST DYES P.S. ANAPHYLACTIC REACTION TO IV CONTRAST Mushroom Unknown 09/10/2018 Penicillins Unknown 05/20/1999 Medications [...] 2018 Myofascial muscle pain 10/24/2017 Sacroiliitis 05/02/2017 Encounters Date Type Department Care Team Description 01/21/2025 2:59 PM EDT - 01/21/2025 11:59 PM EDT Hospital Encounter [address] [address] Jenny Richardson PA Discharge Disposition: Home or Self Care 01/08/2025 Procedure Pass [address] [address] 01/08/2025 Transcribe Orders Virtual Department [address] [place] [address] Jenny Richardson PA Generalized abdominal pain (Primary Dx); Epigastric abdominal pain 01/07/2025 2:06 PM EDT - 01/07/2025 11:59 PM EDT Hospital Encounter [facility] [address] [address] Jenny Richardson PA Discharge Disposition: Home or Self Care 01/07/2025 Transcribe Orders [facility] [address] [place] [address] Jenny Richardson PA Gastroesophageal reflux disease without esophagitis (Primary Dx) from Last 3 Months Immunizations Immunization Administration Dates Next Due COVID-19 (Pre-03/26) Pfizer Vaccine, mRNA, PF ,09/19/2020 Family History Medical [...] 2024 10/10/2020, 09/19/2020 PAP SMEAR 09/20/2024 09/20/2021 INFLUENZA VACCINE (#1) 2025 7, 02/03/2016 PNEUMOCOCCAL VACCINES (0-49 years) Aged Out 12/05/2015 [...] this topic Medical Devices Implanted Type Area Children'S Nursery Assistant Device Identifier Shelf Expiration Date Model / Serial / Lot Feet,Bilat Screws-09/10/2000 Implanted:09/10 (Quantity not on file) Implant Ifuse 3d 7x55mm - [id number] Implanted:Qty: 1 on 09/10/2018 by Hodan Ruiz MD, PhD at [facility] Left: Sacrum [employer] 04/08/2023 [id number]-90 / [id number] / [id number] Implant Ifuse 3d 7x45mm - [id number] Implanted:Qty: 1 on 09/10/2018 by Hodan Ruiz MD, PhD at [facility] Left: Sacrum S [employer] 04/08/2023 [id number]-90 / [id number] / [id number] Implant Ifuse 3d 7x40mm - [id number] Implanted:Qty: 1 on 09/10/2018 by Hodan Ruiz MD, PhD at [facility] Left: Sacrum [employer] 04/08/2023 [id number]-90 / [id number] / [id number] Procedures Procedure Name Priority Date/Time Associated Diagnosis Comments CT ABDOMEN/PELVIS WITHOUT CONTRAST Routine 01/21/2025 4:00 PM EDT Generalized abdominal pain Epigastric abdominal pain CBC AND DIFFERENTIAL Routine 01/07/2025 2:06 PM EDT Gastroesophageal reflux disease without esophagitis COMPREHENSIVE METABOLIC PANEL Routine 01/07/2025 2:06 PM EDT Gastroesophageal reflux disease without esophagitis LIPASE Routine 01/07/2025 2:06 PM EDT Gastroesophageal reflux disease without esophagitis PAP TEST Routine 09/20/2021 12:00 AM EDT from Last 3 Months or Most Recently Relevant to Health Maintenance Results * CT ABDOMEN/PELVIS WITHOUT CONTRAST (01/21/2025 [...] ROGERS IMG CT ABD/PELVIS Final Res ult * (ABNORMAL) Comprehensive metabolic panel (01/07/2025 2:06 PM EDT) SODIUM 141 133 - 146 mmol/L [facility] POTASSIUM 4.4 3.3 - 5.1 mmol/L [facility] CHLORIDE 100 96 - 108 mmol/L [facility] CO2 25 21 - 35 mmol/L [facility] BUN 20(H) 6 - 19 mg/dL [facility] CREATININE 1.20 0.5 - 1.5 mg/dL [facility] GLUCOSE 83 70 - 99 mg/dL [facility] ALBUMIN 4.8 3.9 - 4.8 g/dL [facility] TOTAL PROTEIN 7.5 6.5 - 8.0 g/dL [facility] CALCIUM 9.9 8.4 - 10.3 mg/dL [facility] ALKALINE PHOSPHATASE 81 39 - 117 U/L [facility] TOTAL BILIRUBIN 0.5 0.0 - 1.2 mg/dL [facility] AST 20 0 - 37 U/L [facility] ALT 10 0 - 40 U/L [facility] GLOBULIN 2.7 1 - 4.8 g/dL [facility] EGFR 56(L) >59 mL/min/1.7 3m2 [facility] Comment:Estimated glomerular filtration rate calculated using the CKD-EPI refit equation. ANION GAP 20 10 - 20 mmol/L [facility] Blood 01/07/2025 2:06 PM EDT 01/07/2025 2:09 PM EDT us Jenny ROGERS LAB BLOOD ORDERABLES Final Result [facility] [address] [place] [address] * CBC and differential (01/07/2025 2:06 PM EDT) WBC 6.25 4.00 - 11.00 K/uL [facility] RBC 4.56 4.00 - 5.20 M/uL [facility] HGB 14.0 12.0 - 16.0 g/dL [facility] HCT 40.8 36.0 - 46.0 % [facility] PLT 200 150 - 450 K/uL [facility] MCV 89.5 80.0 - 100.0 fL [facility] MCH 30.7 27.0 - 31.0 pg [facility] MCHC 34.3 32.0 - 36.0 g/dL [facility] RDW 12.3 11.5 - 14.5 % [facility] MPV 11.6 8.4 - 12.0 fL [facility] NRBC 0.00 0.00 /100 WBCs [facility] ABSOLUTE NRBC 0.00 0.00 K/uL [facility] DIFF METHOD Auto [facility] NEUTS 58.6 48.0 - 76.0 % [facility] LYMPHS 32.6 18.0 - 41.0 % [facility] MONOS 7.7 4.0 - 11.0 % [facility] EOS 0.5 0.0 - 5.0 % [facility] BASOS 0.3 0.0 - 1.5 % [facility] Granulocytes, immature (%) 0.3 0.0 - 0.9 % [facility] ABSOLUTE NEUTS 3.66 1.92 - 7.60 K/uL [facility] ABSOLUTE LYMPHS 2.04 0.72 - 4.10 K/uL [facility] ABSOLUTE MONOS 0.48 0.16 - 1.10 K/uL [facility] ABSOLUTE EOS 0.03 0.00 - 0.50 K/uL [facility] ABSOLUTE BASOS 0.02 0.00 - 0.15 K/uL [facility] Granulocytes, immature 0.02 0.00 - 0.09 K/uL [facility] Blood 01/07/2025 2:06 PM EDT 01/07/2025 2:09 PM EDT us Jenny ROGERS LAB BLOOD ORDERABLES Final Result [facility] [address] [place] [address] * Lipase (01/07/2025 2:06 PM EDT) LIPASE 28 16 - 63 U/L [facility] Blood 01/07/2025 2:06 PM EDT 01/07/2025 2:09 PM EDT us Jenny Jelena ROGERS LAB BLOOD ORDERABLES Final Result [address] [address] * Pap Smear (09/20/2021 12:00 AM EDT) 09/20/2021 09/21/2021 9:3 2 AM EDT Narrative SEE NARRATIVE - 09/26/2021 4:07 PM EDT [address] [address] Material Handler 1[address] Shift: Faye Esquivel MD CLEAN ROOM ASSEMBLER Cytology Report FINAL DIAGNOSIS A. PAP SMEAR [...] 52, 56, 58, 59, 66, 68) by [employer] [facility] HR-HPV analysis. Clinical correlation is advised. This HPV test was performed at [facility], [address] [place] [address]. This test has been FDA approved for SurePath cervical cytology specimens. The accuracy and precision of this test for all other specimen sources has been verified in the Cytopathology Laboratory of the [facility] and has not been cleared or approved by the U.S. Food and Drug Administration. Clinical correlation is advised. CLINICAL HISTORY Date of Last Menstrual Period: 09-05-2021 Other Clinical Conditions: Screening Pap SPECIMEN SOURCE A: PAP SMEAR (SUREPATH) CE Patient Name: LIZA MCLEAN. : 1975 (Age: 45) Sex: F Institution: [facility] Location: [facility] Date of Collection: 09/20/2021 Date of Reported: 09/26/2021 16:07 Results to: September Ada Springer September Ada Moser MAT ROLLER CYTOLOGY ORDERAB LES Final Result SEE NARRATIVE from Last 3 Months or Most Recently Relevant to Health Maintenance Insurance MEDICARE A [facility] HMO MEDICARE A [facility] A MEDICARE A MEDICARE A Member Subscriber Plan / Payer (Ef fective 2014-Present) Name:Liza Mclean Member ID:[id number] Relation to Subscriber:Self Name:Liza Mclean Subscriber ID:[id number] Payer ID:[id number] Group ID:Not on file Type:Medicare Address: [employer] MEDIC[address] A Member Subscriber Plan / Payer (Ef fective 2014-Present) Name:Liza Mclean Member ID:[id number] Relation to Subscriber:Self Name:Liza Mclean Subscriber ID:[id number] Payer ID:[id number] Group ID:Not on file Type:Medicare Address: [employer] [address] [place], [place] [id number] [facility] MED[facility] A [facility] MEDIC[facility] A Member Subscriber Plan / Payer ( fective 2014-Present) Name:HeidiLiza farrar Member ID:[id number] Relation to Subscriber:Self Name:Liza Mclean Subscriber ID:[id number] Payer ID:[id number] Group ID:Not on file Type:Medicare Address: [facility] [address] MEDICARE A HMO Advance Directives For more information, please contact: [phone] (9AM - 5PM [facility], Sunday-Sunday) * Full Code (Presumed) (Latest Code Status on File) Date Activated Date Inactivated Comments 09/10/2018 3:37 PM 09/13/2018 5:01 PM Care Teams Afterschool Relationship Specialty Start Date End Date Michelle Carty [address] [place] [address] PCP - General 08/31/24 Additional Source Comments The information contained in this document represents components of the legal health record. It is not the complete legal health record.[facility]
--- OUTSIDE RECORDS SUMMARY | 2025-02-19 14:53 | XMS_ITS | Encounter Summary ---
Author Organization [facility] Address [address] [facility] [address] [place] [address] Phone Care Team Providers Care Grades 1 Through 5 Teacher Name Role Phone Colten Hung MD Primary Care Provider [phone] Michelle Carty Primary Care Provider [email or web address] Encounter Details Date Type Department Care Team (Latest Contact Info) Description 08/29/2024 Transcribe Orders Virtual Department [address] [place] [address] Makayla Tello NP [address] [place] [address] [email or web address] LLQ pain (Primary Dx) Social History Tobacco Use Types Packs/Day Years Used Date Smoking Tobacco: Every Day Cigarettes 0.5 10 Smokeless Tobacco: Never Education Answer Date Recorded Are you interested [...] 11:50 AM EDT Renetta Sarkar RN * [place] Suicide Severity Rating Scale (Screener/Recent Self-Report) Question [...] documented as of this encounter Visit Diagnoses Diagnosis LLQ pain- Primary Abdominal pain, left lower quadrant documented in this encounter Care Teams Grades 1 Through 5 Teacher Relationship Specialty Start Date End Date Colten Hung MD PCP - General 03/22/17 08/30/24 Michelle Carty [address] [place] [address] PCP - General 08/31/24 documented as of this encounter Additional Source Comments The information contained in this document represents components of the legal health record. It is not the complete legal health record.[facility]
== END 2025-02-19 13:20 | disposition home or self-care (01) ==
LOC: HO.HCC 12:49
PROVIDERS: PCP Nurse Practitioner Family; Visit Provider Clinical Nurse Specialist Psychiatric/Mental Health
DX: F11.21 Opioid dependence, in remission (principal)
CPT/HCPCS: 99213

== ENCOUNTER 2025-04-22 13:01 | Outpatient (AMB) | payer OTHER, SELFPAY ==
[2025-04-22 13:06] VITALS: BP 138/80; PULSE 78; O2SAT 97
--- NOTE | 2025-04-22 13:06 | MHC.OFFVIS ---
Vital Signs 04/22/25 13:06 BP 138/80 Pulse 78 Pulse Oximetry (%) 97 Intake Visit Reasons: MAT Allergies Iodinated Contrast Media (CONTRAST, IV) Allergy (Severe, Verified 04/22/25 13:07) ANAPHALAXIS Penicillins (PENICILLINS) Allergy (Intermediate, Verified 04/22/25 13:07) HIVES mushroom Allergy (Mild, Verified 04/22/25 13:07) Rash divalproex sodium (From DEPAKOTE) Allergy (Unknown, Verified 04/22/25 13:07) SWELLING HPI Comments Details: A 49-year-old female presents for a follow-up visit r/t CM in sustained remission with buprenorphine-naloxone 2-0.5 mg daily. Denies use of opiates, alcohol, and other substances. Engages in conversation re: coping with stress r/t having to pay multiple co-payments due to insurance deductible. [facility] Medical History Opioid use disorder Surgical History History of cholecystectomy History of appendectomy History of bunionectomy Previous back surgery Physical Exam Vital Signs: Last Vital Signs Pulse 78 04/22/25 13:06 BP 138/80 04/22/25 13:06 Pulse Ox 97 04/22/25 13:06 Assessment & Plan Assessment & Plan (1) Opioid use disorder, moderate, in sustained remission: Code(s): F11.21 - Opioid dependence, in remission Category: Medical Plan The plan of care is to continue with buprenorphine-naloxone 2-0.5 mg daily, citalopram 40 mg daily, lamotrigine 50 mg daily, and buspirone 15 mg TID. Follow-up in 3 months or sooner if needed. Medications: Refilled buprenorphine-naloxone 2-0.5 mg (Suboxone) 1 film sublingual DAILY 30 ea 1RF buspirone 15 mg PO TID 90 tabs 1RF lamotrigine 50 mg (2 x 25 mg) PO DAILY 60 tabs 1RF 30 days citalopram (Celexa) 40 mg PO DAILY 90 tabs 0RF Patient Instructions: - Continue with buprenorphine-naloxone, citalopram, lamotrigine, and buspirone as prescribed. - Follow-up in 3 months or sooner if needed. - Call with questions, concerns, or to report side effects/new onset of symptoms to [facility]. - The patient verbalized understanding and agreed with plan of care. Coding Level of Care Code Est Pt Level 3 (32878) Diagnoses Opioid use disorder, moderate, in sustained remission F11.21
--- OUTSIDE RECORDS SUMMARY | 2025-04-23 00:52 | XMS_ITS | Encounter Summary ---
Author Organization [facility] Address [address] [facility] [address] [place] [address] Phone Care Team Providers Care Merchandise Shopper Name Role Phone Colten Hung MD Primary Care Provider [phone] Michelle Carty Primary Care Provider Unavailable Encounter Details Date Type Department Care Team (Latest Contact Info) Description 08/29/2024 Transcribe Orders Virtual Department [address] [place] [address] Makayla Tello NP [address] [place] [address] [email or web address] LLQ pain (Primary Dx) Social History Tobacco [...] 11:50 AM EDT Renetta Sarkar RN * [place] Suicide Severity Rating Scale (Screener/Recent Self-Report) Question Answer Date of Assessment Author 1. Wish to be (Past 1 Month) No 08/31/2024 11:50 AM EDT Cedric Hyunh cie, RN 2. Non-Specific Active Suicidal Thoughts (Past 1 Month) No 08/31/2024 11:50 AM EDT Cedric Huynh cie, RN 6. Suicidal Behavior (Lifetime) No 08/31/2024 11:50 AM EDT Cedric Huynh cie, RN documented as of this encounter Plan of Treatment Upcoming Encounters Date Type Department Care Team (Late st Contact Info) Description 06/12/2025 1:30 PM EST Office Visit [facility] [address] [place] [address] Unknown, Unknown, Jenny Ramires PA-C [address] [place] [address] [email or web address] documented as of this encounter Visit Diagnoses Diagnosis LLQ pain- Primary Abdominal pain, left lower quadrant documented in this encounter Care Teams Merchandise Shopper Relationship Specialty Start Date End Date Colten Hung MD PCP - General 03/22/17 08/30/24 Michelle Carty PCP - General 08/31/24 documented as of this encounter Additional Source Comments The information contained in this document represents components of the legal health record. It is not the complete legal health record.[facility]
--- OUTSIDE RECORDS SUMMARY | 2025-04-23 00:52 | XMS_ITS | Encounter Summary ---
Author Organization [facility] Address [address] [facility] [address] [place] [address] Phone Care Team Providers Care Dress Draper Name Role Phone Colten Hung MD Primary Care Provider [phone]- [phone] Michelle Carty Primary Care Provider Unavailable Encounter Details Date Type Department Care Team (Late Contact Info) Description 10/01/2018 Ancillary Orders [facility],Outside Imaging [address] [place] [address] System, Provider Not In, PhD [address] [address] Social History Tobacco Use Types Packs/Day Years [...] Encounters Date Type Department Care Team (Late Contact Info) Description 06/12/2025 1:30 PM EST Office Visit [facility] 10 [place] [address] Unknown, Unknown, Jenny Ramires PA-C [address] [address] [email or web address] documented as of this encounter Visit Diagnoses Not on filedocumented in this encounter Care Teams Dress Draper Relationship Specialty Start Date End Date Colten Hung MD [email or web address] PCP - General 03/22/17 08/30/24 Michelle Carty PCP - General 08/31/24 documented as of this encounter Additional Source Comments The information contained in this document represents components of the legal health record. It is not the complete legal health record.[facility]
--- OUTSIDE RECORDS SUMMARY | 2025-04-23 00:52 | XMS_ITS | Encounter Summary ---
Author Organization [facility] Address [address] [facility] [address] [place] [address] Phone Care Team Providers Care Jewel Hole Gauger Name Role Phone Colten Hung MD Primary Care Provider [phone]- [phone] Michelle Carty Primary Care Provider Unavailable Encounter Details Date Type Department Care Team (Late Contact Info) Description 09/10/2018 Procedure Pass [facility] Periop 1st floor [address] [place] [address] Social History Tobacco Use Types Packs/Day Years [...] Description 06/12/2025 1:30 PM EST Office Visit [facility] [address] [place] [address] Unknown, Unknown, Jenny Ramires PA-C [address] [address] [email or web address] documented as of this encounter Visit Diagnoses Not on filedocumented in this encounter Care Teams Jewel Hole Gauger Relationship Specialty Start Date End Date Colten Hung MD [email or web address] PCP - General 03/22/17 08/30/24 Michelle Carty PCP - General 08/31/24 documented as of this encounter Additional Source Comments The information contained in this document represents components of the legal health record. It is not the complete legal health record.[facility]
--- OUTSIDE RECORDS SUMMARY | 2025-04-23 00:52 | XMS_ITS | Encounter Summary ---
Author Organization [facility] Address [address] [facility] [address] [place] [address] Phone Care Team Providers Care Operating System Designer Name Role Phone Michelle Carty Primary Care Provider Unavailable Reason for Referral * MRI/CAT Scan - Closed Specialty Diagnoses / Procedures Referred By Contac t Referred To Contact Radiology Diagnoses Generalized abdominal pain Epigastric abdominal pain Procedures CT Abdomen/Pelvis CHG CT SCAN,ABDOMENT AND PELVIS,W CONTRAST CHG CT SCAN,ABDOMENT AND PELVIS,W/O CONTRAST Jenny Richardson PA [address] [place] [address] Phone: tel: fax: Referral ID Status Reason Start Date Expiration Date Visits Re quested Visits Authorized [id number] Closed 01/08/2025 03/09/2025 1 1 Encounter Details Date Type Department Care Team (Latest Contact Info) Description 01/08/2025 Transcribe Orders Virtual Department [address] [place] [address] Jenny Richardson PA [address] [place] [address] Generalized abdominal pain (Primary Dx); Epigastric abdominal [...] Description 06/12/2025 1:30 PM EST Office Visit [facility] [address] [place] [address] Unknown, Unknown, Jenny Ramires PA-C [address] [place] [address] [email or web address] documented as of this encounter Results * [...] no acute findings to account for abdominalpain. Jenny ROGERS IMG CT ABD/PELVIS Final Res ult documented in this encounter Visit Diagnoses Diagnosis Generalized abdominal pain- Primary Abdominal pain, generalized Epigastric abdominal pain Abdominal pain, epigastric Generalized abdominal pain Abdominal pain, generalized Epigastric abdominal pain Abdominal pain, epigastric documented in this encounter Care Teams Operating System Designer Relationship Specialty Start Date End Date Michelle Carty PCP - General 08/31/24 documented as of this encounter Additional Source Comments The information contained in this document represents components of the legal health record. It is not the complete legal health record.[facility]
--- OUTSIDE RECORDS SUMMARY | 2025-04-23 00:52 | XMS_ITS | Encounter Summary ---
Author Organization [facility] Address [address] [facility] [address] [place] [address] Phone Care Team Providers Care Human Resources Assistant Name Role Phone Michelle Carty Primary Care Provider Unavailable Encounter Details Date Type Department Care Team (Latest Contact Info) Description 01/07/2025 Transcribe Orders [facility] Phleb Cara [address] [address] Jenny Richardson PA 10 [place] [address] Gastroesophageal reflux disease without esophagitis (Primary Dx) [...] Description 06/12/2025 1:30 PM EST Office Visit [facility] [address] [place] [address] Unknown, Unknown, Jenny Ramires PA-C [address] [place] [phone] [email or web address] documented as of this encounter Results * Lipase (01/07/2025 2:06 PM EDT) LIPASE 28 16 - 63 U/L [facility] Blood 01/07/2025 2:06 PM EDT 01/07/2025 2:09 PM EDT us Jenny [facility] BLOOD BKR ORDERABLES Fi nal Result [facility] [address] [place] [address] * (ABNORMAL) Comprehensive metabolic panel (01/07/2025 2:06 PM EDT) SODIUM 141 133 - 146 mmol/L [facility] POTASSIUM 4.4 3.3 - 5.1 mmol/L [facility] CHLORIDE 100 96 - 108 mmol/L [facility] CO2 25 21 - 35 mmol/L [facility] BUN 20(H) 6 - 19 mg/dL [facility] CREATININE 1.20 0.5 - 1.5 mg/dL [facility] GLUCOSE 83 70 - 99 mg/dL [facility] ALBUMIN 4.8 3.9 - 4.8 g/dL [facility] TOTAL PROTEIN 7.5 6.5 - 8.0 g/dL [facility] CALCIUM 9.9 8.4 - 10.3 mg/dL [facility] ALKALINE PHOSPHATASE 81 39 - 117 U/L [facility] TOTAL BILIRUBIN 0.5 0.0 - 1.2 mg/dL [facility] AST 20 0 - 37 U/L [facility] ALT 10 0 - 40 U/L [facility] GLOBULIN 2.7 1 - 4.8 g/dL [facility] EGFR 56(L) >59 mL/min/1.7 3m2 [facility] Comment:Estimated glomerular filtration rate calculated using the CKD-EPI refit equation. ANION GAP 20 10 - 20 mmol/L [facility] Blood 01/07/2025 2:06 PM EDT 01/07/2025 2:09 PM EDT us Jenny [facility] BLOOD BKR ORDERABLES Fi nal Result [address] [address] * CBC and differential (01/07/2025 2:06 PM EDT) WBC 6.25 4.00 - 11.00 K/uL [facility] RBC 4.56 4.00 - 5.20 M/uL [facility] HGB 14.0 12.0 - 16.0 g/dL [facility] HCT 40.8 36.0 - 46.0 % [facility] PLT 200 150 - 450 K/uL [facility] MCV 89.5 80.0 - 100.0 fL [facility] MCH 30.7 27.0 - 31.0 pg [facility] MCHC 34.3 32.0 - 36.0 g/dL [facility] RDW 12.3 11.5 - 14.5 % [facility] MPV 11.6 8.4 - 12.0 fL [facility] NRBC 0.00 0.00 /100 WBCs [facility] ABSOLUTE NRBC 0.00 0.00 K/uL [facility] DIFF METHOD Auto [facility] NEUTS 58.6 48.0 - 76.0 % [facility] LYMPHS 32.6 18.0 - 41.0 % [facility] MONOS 7.7 4.0 - 11.0 % [facility] EOS 0.5 0.0 - 5.0 % [facility] BASOS 0.3 0.0 - 1.5 % [facility] Granulocytes, immature (%) 0.3 0.0 - 0.9 % [facility] ABSOLUTE NEUTS 3.66 1.92 - 7.60 K/uL [facility] ABSOLUTE LYMPHS 2.04 0.72 - 4.10 K/uL [facility] ABSOLUTE MONOS 0.48 0.16 - 1.10 K/uL [facility] ABSOLUTE EOS 0.03 0.00 - 0.50 K/uL [facility] ABSOLUTE BASOS 0.02 0.00 - 0.15 K/uL [facility] Granulocytes, immature 0.02 0.00 - 0.09 K/uL [facility] Blood 01/07/2025 2:06 PM EDT 01/07/2025 2:09 PM EDT us Jenny [facility] BLOOD BKR ORDERABLES Fi nal Result Performing Organization Address City/State/[facility] Co de Phone Number [address] [address] documented in this encounter Visit Diagnoses Diagnosis Gastroesophageal reflux disease without esophagitis- Primary Esophageal reflux documented in this encounter Care Teams Human Resources Assistant Relationship Specialty Start Date End Date Michelle Carty PCP - General 08/31/24 documented as of this encounter Additional Source Comments The information contained in this document represents components of the legal health record. It is not the complete legal health record.[facility]
--- OUTSIDE RECORDS SUMMARY | 2025-04-23 00:52 | XMS_ITS | Encounter Summary ---
Author Organization [facility] Address [address] [facility] [address] [place] [address] Phone Care Team Providers Care Concessions Manager Name Role Phone Colten Hung MD Primary Care Provider [phone] Michelle Carty Primary Care Provider Unavailable Encounter Details Date Type Department Care Team (Late st Contact Info) Description 09/16/2018 Procedure Pass [facility], [address] [address] Social History Tobacco Use Types Packs/Day Years [...] Description 06/12/2025 1:30 PM EST Office Visit [facility] [address] [place] [address] Unknown, Unknown, Jenny Ramires PA-C [address] [address] documented as of this encounter Visit Diagnoses Not on filedocumented in this encounter Care Teams Concessions Manager Relationship Specialty Start Date End Date Colten Hung MD [email or web address] PCP - General 03/22/17 08/30/24 Michelle Carty PCP - General 08/31/24 documented as of this encounter Additional Source Comments The information contained in this document represents components of the legal health record. It is not the complete legal health record.[facility]
--- OUTSIDE RECORDS SUMMARY | 2025-04-23 00:52 | XMS_ITS | Clinical Summary ---
Author Organization [facility] Address [address] [facility] [address] [place] [address] Phone Care Team Providers Care Pharmaceutical Sales Specialist Name Role Phone Michelle Carty Primary Care Provider Unavailable Allergies Active Allergy Reactions Criticality Noted Date [...] - 01/21/2025 11:59 PM EDT Hospital Encounter [facility], [address] [address] Jenny Richardson PA Discharge Disposition: Home or Self Care 01/08/2025 Procedure Pass [facility], [place] [address] [address] from Last 3 Months Immunizations Immunization Administration [...] 08/31/2024 11:48 AM EDT Plan of Treatment Upcoming Encounters Date Type Department Care Team (Late st Contact Info) Description 06/12/2025 1:30 PM EST Office Visit [facility]astro[facility] Clinic [address] [place] [address] Unknown, Unknown, Jenny Ramires PA-C [address] [place] [address] Health Maintenance Due Date Last Done Comments Adult Td,Tdap Booster 1975 LIPID PANEL 1977 DEPRESSION SCREENING 1989 SMOKING Hx and SMOKELESS TOBACCO SCREENING 1990 HEPATITIS C SCREENING 12/15/1995 HIV ONE-TIME SCREENING (18-6 5 YEARS) 12/15/1995 MAMMOGRAM 2017 COLOGUARD 2022 COLONOSCOPY 2022 COLORECTAL CANCER SCREENING 2022 FIT TEST 2022 FOBT 2022 SIGMOIDOSCOPY 2022 VIRTUAL COLONOSCOPY 2022 PAP SMEAR 09/20/2024 09/20/2021 INFLUENZA VACCINE (#1) 2025 7, 02/03/2016 COVID-19 VACCINE (2 6 season) 2025 10/10/2020, 09/19/2020 PNEUMOCOCCAL VACCINES (0-49 years) Aged Out 12/05/2015 No longer eligible b ased on patient's age to complete this topic HEPATITIS A VACCINES Aged Out No long er eligible based on patient's age to complete this topic HIB VACCINES Aged Out No longer eligi ble based on patient's age to complete this topic IPV VACCINES Aged Out No longer eligi ble based on patient's age to complete this topic MENINGOCOCCAL VACCINES (ACWY) Aged Out No longer eligible based on patient's age to complete this topic MENINGOCOCCAL VACCINES (B) Aged Out N o longer eligible based on patient's age to complete this topic Medical Devices Implanted Type Area Senior Consultant Device Identifier Shelf Expiration Date Model / Serial / Lot Feet,Bilat Screws-09/10/2000 Implanted:09/10 (Quantity not on file) Implant Ifuse 3d 7x55mm - [id number] Implanted:Qty: 1 on 09/10/2018 by Hodan Ruiz MD, PhD at [facility] Left: Sacrum S [employer] 04/08/2023 [id number]-90 / [id number]-90 / [id number] Implant Ifuse 3d 7x45mm - [id number] Implanted:Qty: 1 on 09/10/2018 by Hodan Ruiz MD, PhD at [facility] Left: Sacrum S [employer] 04/08/2023 [id number]-90 / [id number]-90 / [id number] Implant Ifuse 3d 7x40mm - [id number] Implanted:Qty: 1 on 09/10/2018 by Hodan Ruiz MD, PhD at [facility] Left: Sacrum S [employer] 04/08/2023 [id number]-90 / [id number] / [id number] Procedures Procedure Name Priority Date/Time Associated Diagnosis Comments CT ABDOMEN/PELVIS WITHOUT CONTRAST Routine 01/21/2025 4:00 PM EDT Generalized abdominal pain Epigastric abdominal pain PAP TEST Routine 09/20/2021 12:00 AM EDT [...] IMG CT ABD/PELVIS Final Res ult * Pap Smear (09/20/2021 12:00 AM EDT) 09/20/2021 09/21/2021 9:3 2 AM EDT Narrative SEE NARRATIVE - 09/26/2021 4:07 PM EDT [address] [address] [employer] Set Up Technician: Faye Esquivel MD GEMOLOGIST Cytology Report FINAL DIAGNOSIS A. PAP SMEAR [...] 52, 56, 58, 59, 66, 68) by COSMIC COLOR HR-HPV analysis. Clinical correlation is advised. This HPV test was performed at [facility], [address] [place] [address]. This test has been FDA approved for [facility] cervical cytology specimens. The accuracy and precision of this test for all other specimen sources has been verified in the Cytopathology Laboratory of the [facility] and has not been cleared or approved by the U.S. Food and Drug Administration. Clinical correlation is advised. CLINICAL HISTORY Date of Last Menstrual Period: 09-05-2021 Other Clinical Conditions: Screening Pap SPECIMEN SOURCE A: PAP SMEAR (SUREPATH) CE Patient Name: CARYN MCLEANJOSE Segura : 1975 (Age: 45) Sex: F Institution: [facility] Location: [facility] Date of Collection: 09/20/2021 Date of Reported: 09/26/2021 16:07 Results to: September Ada Springer September Ada Moser NP CYTOLOGY ORDERAB LES Final Result SEE NARRATIVE from Last 3 Months or Most Recently Relevant to Health Maintenance Insurance [place] [facility] [place]: [address] [address] MEDICARE A [facility] MEDICARE A [facility]ICARE [facility] MED[facility] A [facility] MEDICARE A [address] [place], [place] [id number] [place] [place] Address: [place] [address] MEDICARE A MEDICARE A [facility] HMO Advance Directives For more information, please contact: [phone] (9AM - 5PM [facility], Sunday-Sunday) * Full Code (Presumed) (Latest Code Status on File) Date Activated Date Inactivated Comments 09/10/2018 3:37 PM 09/13/2018 5:01 PM Care Teams Pharmaceutical Sales Specialist Relationship Specialty Start Date End Date Michelle Carty PCP - General 08/31/24 Additional Source Comments The information contained in this document represents components of the legal health record. It is not the complete legal health record.[facility]
--- OUTSIDE RECORDS SUMMARY | 2025-04-23 00:52 | XMS_ITS | Encounter Summary ---
Author Organization [facility] Address [address] [facility] [address] [place] [address] Phone Care Team Providers Care Metal Cnc Operator Name Role Phone Michelle Carty Primary Care Provider Unavailable Encounter Details Date Type Department Care Team (Late st Contact Info) Description 08/31/2024 Procedure Pass [facility], Ct Scan - [address] [address] Social History Tobacco Use Types Packs/Day Years [...] 11:50 AM EDT Renetta Sarkar RN * [place] Suicide Severity Rating Scale (Screener/Recent Self-Report) Question Answer Date of Assessment Author 1. Wish to be (Past 1 Month) No 08/31/2024 11:50 AM EDT Cedric Huyhn cie, RN 2. Non-Specific Active Suicidal Thoughts (Past 1 Month) No 08/31/2024 11:50 AM EDT Cedric Huynh cie, RN 6. Suicidal Behavior (Lifetime) No 08/31/2024 11:50 AM EDT Cedric Huynh cie, RN documented as of this encounter Plan of Treatment Upcoming Encounters Date Type Department Care Team (Late st Contact Info) Description 06/12/2025 1:30 PM EST Office Visit [facility] [address] [place] [address] Unknown, Unknown, Jenny Ramires PA-C [address] [place] [phone] [email or web address] documented as of this encounter Visit Diagnoses Not on filedocumented in this encounter Care Teams Metal Cnc Operator Relationship Specialty Start Date End Date Michelle Carty PCP - General 08/31/24 documented as of this encounter Additional Source Comments The information contained in this document represents components of the legal health record. It is not the complete legal health record.[facility]
--- OUTSIDE RECORDS SUMMARY | 2025-04-23 00:52 | XMS_ITS | Encounter Summary ---
Author Organization [facility] Address [address] [facility] [address] [place] [address] Phone Care Team Providers Care Circuit Walker Name Role Phone Michelle Carty Primary Care Provider Unavailable Encounter Details Date Type Department Care Team (Late st Contact Info) Description 01/08/2025 Procedure Pass [facility], Ct Scan - [address] [address] Social History Tobacco Use Types Packs/Day Years [...] Upcoming Encounters Date Type Department Care Team ([facility] st Contact Info) Description 06/12/2025 1:30 PM EST Office Visit [facility] [address] [place] [address] Unknown, Unknown, Jenny Ramires PA-C [address] [address] [email or web address] documented as of this encounter Visit Diagnoses Not on filedocumented in this encounter Care Teams Circuit Walker Relationship Specialty Start Date End Date Michelle Carty PCP - General 08/31/24 documented as of this encounter Additional Source Comments The information contained in this document represents components of the legal health record. It is not the complete legal health record.[facility]
== END 2025-04-22 13:19 | disposition home or self-care (01) ==
LOC: HO.HCC 13:01
PROVIDERS: PCP Nurse Practitioner Family; Visit Provider Clinical Nurse Specialist Psychiatric/Mental Health
DX: F11.21 Opioid dependence, in remission (principal)
CPT/HCPCS: 99213